=== PATIENT | male | born 1975 | race Caucasian/White ===

== ENCOUNTER 2016-05-14 16:02 | Emergency (ER) | payer BC ==
[~2016-05-14] VITALS: Ht 167.6 cm; Wt 110.0 kg
[~2016-05-14 16:02] MED LIST: CARB400T PO; DOXY-153 PO; MONT10TA21 PO; NO NEW MEDS; PSEU-137 PO; SMV40T PO; SULF1TAB7 PO; VENL150C PO
[2016-05-14 16:06] VITALS: Ht 167.6 cm; Wt 110.0 kg
[2016-05-14] MEDS ORDERED: ONDANSETRON 4 MG INJ IV STA (16:25)
[2016-05-14] MEDS ORDERED: SOD CHLORIDE 0.9% 1,000 ML IV STA (16:25)
[2016-05-14] MEDS ORDERED: DICLOFENAC SODIUM 37.5 MG/ML VIAL IV STA (16:25)
[2016-05-14 16:59] LABS: BASOPHILS % 0.1 % (0.0-2.0); HEMATOCRIT 44.3 % (42.0-52.0); HEMOGLOBIN 15.1 g/dl (14.0-18.0); LYMPHOCYTES # 0.5 10^3/ul (0.8-2.9); LYMPHOCYTES % 6.1 % (15.0-51.0); MEAN CORPUSCULAR HEMOGLOBIN 30.4 pg (29.0-33.0); MEAN CORPUSCULAR HGB CONC 34.2 g/dl (32.0-37.0); MEAN CORPUSCULAR VOLUME 88.8 fl (82.0-101.0); MEAN PLATELET VOLUME 7.4 fl (7.4-10.4); MONOCYTE # 0.7 10^3/ul (0.3-0.9); MONOCYTES % 8.5 % (0.0-11.0); NEUTROPHIL # 7.1 10^3/ul (1.6-7.5); NEUTROPHILS % 85.3 % (39.0-77.0); PLATELET COUNT 197 10^3/UL (140-440); RED BLOOD COUNT 4.99 10^6/ul (4.70-6.10); RED CELL DISTRIBUTION WIDTH 12.6 % (11.5-14.5); UNCORRECTED WBC 8.3 10^3/ul (4.8-10.8); WHITE BLOOD COUNT 8.3 10^3/ul (4.8-10.8)
[2016-05-14 17:03] LABS: CONDITION 1
[2016-05-14 17:57] LABS: ALBUMIN 4.5 g/dl (3.3-4.9)
[2016-05-14 17:58] LABS: POTASSIUM 4.2 mmol/L (3.5-5.1)
[2016-05-14 18:00] LABS: ALBUMIN/GLOBULIN RATIO 1.55; BILIRUBIN,INDIRECT 0.4 mg/dl (0-1.1); BILIRUBIN,TOTAL 0.4 mg/dl (0.2-1.3); CREATININE 0.84 mg/dl (0.61-1.24); TOTAL PROTEIN 7.4 g/dl (6.1-8.1)
[2016-05-14 18:01] LABS: CALCIUM 9.1 mg/dl (8.4-10.2)
[2016-05-14 18:02] LABS: ADD UMIC YES; URINE BILIRUBIN (Dip) NEGATIVE (NEGATIVE); URINE BLOOD (Dip) NEGATIVE (NEGATIVE); URINE COLOR YELLOW (YELLOW); URINE GLUCOSE (Dip) NEGATIVE (NEGATIVE); URINE KETONES (Dip) NEGATIVE (NEGATIVE); URINE LEUKOCYTE ESTERASE (Dip) NEGATIVE (NEGATIVE); URINE NITRITE (Dip) NEGATIVE (NEGATIVE); URINE TOTAL PROTEIN (Dip) TRACE (NEGATIVE); URINE UROBILINOGEN (Dip) 1.0 E.U./dL (0.1-1.0)
[2016-05-14] MEDS ORDERED: ONDA4TAB14 PO (18:14)
[2016-05-14 18:16] LABS: URINE RBCS 0-2 /HPF (0)
--- NOTE | 2016-05-14 18:22 | ERD ---
ER Documentation Chief Complaint Date/Time DATE: 05/14/16 TIME: 18:20 Chief Complaint pt bib family with c/o vomiting /diarrhea and ap for a few days, "food pois HPI Patient is a 40-year-old male who states he got sick after eating [employer]antes last night. He admits to abdominal pain and nausea and vomiting. Denies fever. Denies dysuria hematuria or urinary frequency. Has not taken any medication for pain. Patient states he feels weak. ROS All systems reviewed and are negative except as per history of present illness. Medications Home Meds Active Scripts Ondansetron (Ondansetron Odt) 4 Mg Tab.rapdis, 4 MG PO Q6H Y for NAUSEA AND/OR VOMITING, #15 TAB Prov:DEEPA PEREZ PA-C 05/14/16 Reported Medications [No New Meds] No Conflict Check 08/05/11 Montelukast Sodium* (Singulair*) 10 Mg Tablet, 10 MG PO QHS 07/11/11 Simvastatin (Simvastatin) 40 Mg Tablet, 40 MG PO 07/11/11 Doxycycline Hyclate (Doxycycline Hyclate) 100 Mg Capsule, 100 MG PO BID 07/11/11 Sulfamethoxazole-Trimethoprim* (Bactrim* DS) 1 Tab Tab, 1 TAB PO BID 07/11/11 Pseudoephedrine Hcl (Sudogest) 30 Mg Tablet, 30 MG PO BID 07/11/11 Carbamazepine* (Tegretol Xr*) 400 Mg Tab.sr.12h, 400 MG PO BID 07/11/11 Venlafaxine Hcl* (Effexor XR*) 150 Mg Cap.sr.24h, 150 MG PO DAILY 07/11/11 Allergies Allergies: Coded Allergies: No Known Allergy (Unverified , 08/05/11) PMhx/Soc History of Surgery: No Anesthesia Reaction: No Hx Neurological Disorder: No Hx Respiratory Disorders: Yes (asthma) Hx Cardiac Disorders: No Hx Psychiatric Problems: No Hx Miscellaneous Medical Probl: No Hx Alcohol Use: No Hx Substance Use: No Hx Tobacco Use: No FmHx Family History: No diabetes Physical Exam Vitals Vital Signs Date Time Temp Pulse Resp B/P Pulse Ox O2 Delivery O2 Flow Rate FiO2 05/14/16 16:06 98.3 74 16 128/81 98 Physical Exam General: well developed, well nourished, alert, nontoxic, no distress Head: normocephalic, atraumatic Neck: Supple, nontender, no lymphadenopathy, no midline tenderness Respiratory: Clear to auscaultation bilaterally, speaks in full sentences, no use of accesory muscles or labored breathing, no rales, ronchi, or wheezing Cardiovascular: RRR, No murmurs GI: soft, non tender, non distended, negative murphys sign, negative mcburneys point tenderness, no cva tenderness bilaterally, no rebound or guarding Result Diagram: 05/14/16 1640 05/14/16 1640 Results 24 hrs Laboratory Tests Test 05/14/16 16:40 05/14/16 17:45 Alanine Aminotransferase (ALT/SGPT) 62IU/L Albumin 4.5g/dl Albumin/Globulin Ratio 1.55 Alkaline Phosphatase 84IU/L Anion Gap 19 Aspartate Amino Transf (AST/SGOT) 42IU/L Basophils # 0.010^3/ul Basophils % 0.1% Blood Urea Nitrogen 18mg/dl Calcium Level 9.1mg/dl Carbon Dioxide Level 26mmol/L Chloride Level 99mmol/L Creatinine 0.84mg/dl Direct Bilirubin 0.00mg/dl Eosinophils # 0.010^3/ul Eosinophils % 0.0% Globulin 2.90g/dl Glucose Level 100mg/dl Hematocrit 44.3% Hemoglobin 15.1g/dl Indirect Bilirubin 0.4mg/dl Lipase 61U/L Lymphocytes # 0.510^3/ul Lymphocytes % 6.1% Mean Corpuscular Hemoglobin 30.4pg Mean Corpuscular Hemoglobin Concent 34.2g/dl Mean Corpuscular Volume 88.8fl Mean Platelet Volume 7.4fl Monocytes # 0.710^3/ul Monocytes % 8.5% Neutrophils # 7.110^3/ul Neutrophils % 85.3% Nucleated Red Blood Cells # 0.010^3/ul Nucleated Red Blood Cells % 0.0/100WBC Platelet Count 85261^3/UL Potassium Level 4.2mmol/L Red Blood Count 4.9910^6/ul Red Cell Distribution Width 12.6% Sodium Level 140mmol/L Total Bilirubin 0.4mg/dl Total Protein 7.4g/dl White Blood Count 8.310^3/ul Urine Bilirubin NEGATIVE Urine Clarity CLEAR Urine Color YELLOW Urine Glucose NEGATIVE% Urine Hemoglobin NEGATIVE Urine Ketones NEGATIVE Urine Leukocyte Esterase NEGATIVE Urine Microscopic RBC 0-2/HPF Urine Microscopic WBC 0-2/HPF Urine Nitrite NEGATIVE Urine Specific [place] 1.020 Urine Total Protein TRACE Urine Urobilinogen 1.0 E.U./dL Urine pH 6.0 Current Medications Medications (Trade) Dose Ordered Sig/Christoph Route PRN Reason Start Time Stop Time Status Last Admin Dose Admin Sodium Chloride (NS) 1,000 ml @ 1,000 mls/hr Q1H STAT IV 05/14/16 16:25 05/14/16 17:24 DC 05/14/16 16:46 Ondansetron HCl (Zofran Inj) 4 mg ONCE STAT IV 05/14/16 16:25 05/14/16 16:27 DC 05/14/16 16:46 Diclofenac Sodium (Dyloject) 37.5 mg ONCE STAT IV 05/14/16 16:25 05/14/16 16:27 DC 05/14/16 16:46 Procedures/MDM 40-year-old male has abdominal pain that he believes is secondary to eating [employer] last night. His vital signs are all normal and he was given IV fluids and pain medication and Zofran and had good relief of his symptoms and all of his labs are normal. Patient is discharged with Zofran. Recommended this patient follow up with her primary care doctor within 48 hours or return to the emergency room for any worsening of symptoms. However this time I do believe there is suitable for outpatient management. I answered all their questions and they agreed with the plan and were discharged home. Departure Diagnosis: Primary Impression: Abdominal pain Condition: Stable Patient Instructions: Abdominal Pain Additional Instructions: Call your primary care doctor TOMORROW for an appointment during the next 1-2 days.See the doctor sooner or return here if your condition worsens before your appointment time. DEEPA PEREZ PA-C May 14, 2016 18:21
[2016-05-14 18:33] VITALS: BP 125/79; PULSE 68; RESP 18; TEMP 97.8
== END 2016-05-14 18:33 | disposition home or self-care (01) ==
LOC: FTE 16:02
DX: R10.9 Unspecified abdominal pain (principal); J45.909 Unspecified asthma, uncomplicated
CPT/HCPCS: 36415; 80053; 81001; 83690; 85025; 96374; 96375; 99284; J2405; J7030; 81003

== ENCOUNTER 2016-09-10 15:31 | Emergency (ER) | payer MEDICARE, BC ==
[~2016-09-10] VITALS: Ht 167.6 cm; Wt 105.5 kg
[~2016-09-10 15:31] MED LIST changes: +ONDA4TAB14 PO
[2016-09-10 15:46] VITALS: Ht 167.6 cm; Wt 105.5 kg
[2016-09-10] MEDS ORDERED: KETOROLAC 30 MG INJ IM STA (16:46)
--- NOTE | 2016-09-10 16:58 | ERD ---
ER Documentation Chief Complaint Date/Time DATE: 09/10/16 TIME: 16:54 Chief Complaint BACK PAIN X 2 DAYS DENIES ANY TRAUMA HPI This a 40-year-old male who presents to the emergency department today complaining of low back pain for the past 2 days. Patient denies any trauma however he states that he was lying in bed for a period of time because he had been sick. Denies any fevers or chills, hematuria, dysuria, loss of bowel or bladder control. States he also has a cough and would like cough medicine. States he has taken DayQuil and NyQuil. ROS All systems reviewed and are negative except as per history of present illness. Medications Home Meds Active Scripts Cyclobenzaprine Hcl* (Cyclobenzaprine Hcl*) 10 Mg Tablet, 10 MG PO QHS, #7 TAB Prov:MICHELLE FLOR PA-C 09/10/16 Naproxen* (Naprosyn*) 500 Mg Tablet, 500 MG PO BID Y for PAIN AND/OR INFLAMMATION, #30 TAB Prov:MICHELLE FLOR PA-C 09/10/16 Tramadol HCl (Tramadol HCl) 50 Mg Tablet, 50 MG PO Q4 Y for PAIN, #20 TAB Prov:MICHELLE FLOR PA-C 09/10/16 Guaifenesin-Dextromethorphan* (Robitussin* DM) 100MG/10MG/5ML Syrup, 10 ML PO Q4H Y for COUGH for 5 Days, ML Prov:MICHELLE FLOR PA-C 09/10/16 Ondansetron (Ondansetron Odt) 4 Mg Tab.rapdis, 4 MG PO Q6H Y for NAUSEA AND/OR VOMITING, #15 TAB Prov:DEEPA PEREZ PA-C 05/14/16 Reported Medications [No New Meds] No Conflict Check 08/05/11 Montelukast Sodium* (Singulair*) 10 Mg Tablet, 10 MG PO QHS 07/11/11 Simvastatin (Simvastatin) 40 Mg Tablet, 40 MG PO 07/11/11 Doxycycline Hyclate (Doxycycline Hyclate) 100 Mg Capsule, 100 MG PO BID 07/11/11 Sulfamethoxazole-Trimethoprim* (Bactrim* DS) 1 Tab Tab, 1 TAB PO BID 07/11/11 Pseudoephedrine Hcl (Sudogest) 30 Mg Tablet, 30 MG PO BID 07/11/11 Carbamazepine* (Tegretol Xr*) 400 Mg Tab.sr.12h, 400 MG PO BID 07/11/11 Venlafaxine Hcl* (Effexor XR*) 150 Mg Cap.sr.24h, 150 MG PO DAILY 07/11/11 Allergies Allergies: Coded Allergies: No Known Allergy (Unverified , 09/10/16) PMhx/Soc Medical and Surgical Hx: pt denies Surgical Hx History of Surgery: No Anesthesia Reaction: No Hx Neurological Disorder: No Hx Respiratory Disorders: Yes (asthma) Hx Cardiac Disorders: No Hx Psychiatric Problems: No Hx Miscellaneous Medical Probl: No Hx Alcohol Use: No Hx Substance Use: No Hx Tobacco Use: No Smoking Status: Never smoker Physical Exam Vitals Vital Signs Date Time Temp Pulse Resp B/P Pulse Ox O2 Delivery O2 Flow Rate FiO2 09/10/16 15:46 97.2 86 18 157/85 100 Physical Exam Const: Obese, no acute distress Head: Atraumatic Eyes: Normal Conjunctiva ENT: Normal External Ears, Nose and Mouth. Neck: Full range of motion..~ No meningismus. Resp: Clear to auscultation bilaterally Cardio: Regular rate and rhythm, no murmurs Skin: No petechiae or rashes Back: No midline tenderness. Left sided paraspinal tenderness. Pain with forward flexion. Negative straight leg raise. Pulses 2+. Distal neurovascularly intact. Ext: No cyanosis, or edema Neur: Awake and alert Psych: Normal Mood and Affect Results 24 hrs Current Medications Medications (Trade) Dose Ordered Sig/Christoph Route PRN Reason Start Time Stop Time Status Last Admin Dose Admin Ketorolac Tromethamine (Toradol) 30 mg ONCE STAT IM 09/10/16 16:46 09/10/16 16:47 DC Procedures/MDM This a 40-year-old male who presents to the emergency department today complaining of left-sided back pain for the past 2 days. Patient has no midline tenderness he has had no trauma and I do not feel the patient requires imaging at this time. Patient's back pain peer to be exacerbated by laying in bed for several days and his symptoms of this time is consistent with sprain versus strain especially given that the pain is increased when he bends forward. Patient is afebrile and otherwise well-appearing. Low suspicion for acute fracture, dislocation. Low suspicion for abscess or cauda equina. Patient states he has not taken any medication at home because "Tylenol, Aleve, Tylenol with codeine, Vicodin, none of that stuff works". Patient was given a Toradol injection here in the emergency department. I have given a prescription for a short course of tramadol for home as well as Naprosyn and Flexeril. Patient was instructed to apply ice and heat intermittently. He was also instructed to refrain from sitting or laying down for long periods of time. Patient understood. Patient was also requesting cough medicine as he had recently been sick and he still has a cough and he has tried DayQuil and NyQuil. Patient's oxygen saturation 100%. He is not tachycardic. Of low suspicion for pneumonia, PE, abscess, pleural effusion,, pneumothorax. Patient was given a prescription for Robitussin. At this time the patient is stable for discharge and outpatient management. Patient should follow up with their PCP in the next 1-2 days. They may return to the emergency department sooner for any persistent or worsening of symptoms. Patient understood and agreed with the plan. Departure Diagnosis: Primary Impression: Back pain Back pain location: low back pain Chronicity: acute Back pain laterality: left Sciatica presence: without sciatica Qualified Code: M54.5 - Acute left- sided low back pain without sciatica Additional Impression: Cough Condition: Fair MICHELLE FLOR PA-C Sep 10, 2016 16:58
[2016-09-10] MEDS ORDERED: UDROBDM PO (16:59)
[2016-09-10] MEDS ORDERED: TRAM50TA2 PO (16:59)
[2016-09-10] MEDS ORDERED: CYCL-319 PO (17:00)
[2016-09-10] MEDS ORDERED: NAPR-260 PO (17:00)
== END 2016-09-10 17:17 | disposition home or self-care (01) ==
LOC: FTE 15:31
DX: M54.5 Low back pain (principal); R05 Cough; J45.909 Unspecified asthma, uncomplicated
CPT/HCPCS: 96372; 99284; J1885

== ENCOUNTER 2017-10-25 05:56 | Day surgery (SDC) | END 2017-10-25 13:32 | disposition home or self-care (01) ==

== ENCOUNTER 2018-06-27 05:42 | Day surgery (SDC) | payer MEDICARE, BC ==
--- NOTE | 2018-06-26 17:11 | PREOPHP ---
DATE OF ADMISSION: 06/27/2018 HISTORY OF PRESENT ILLNESS: A 42-year-old patient is going to be admitted for right carpal tunnel re lease with external neurolysis and application of volar splint. This gentleman has been experiencing right carpal tunnel syndrome for quite a while. Conservative tr eatment resulted limited benefit to the patient. The patient has requested surgical intervention. PAST MEDICAL HISTORY: Negative. SOCIAL HISTORY: Nonsmoker, nondrinker. FAMILY HISTORY: Negative. PAST SURGICAL HISTORY: Shoulder surgery. MEDICATIONS: 1. ____. 2. Flexeril. 3. Claritin. 4. Montelukast. 5. Baclofen. 6. Folic acid D3. 7. B6. 8. B12. 9. Postop, Bactrim-DS is given. PHYSICAL EXAMINATION: VITAL SIGNS: Height of 5 feet, 6 inches, weighing 236 pounds. SKIN: Within normal limits. Well healed from previous surgery on his shoulder. ENT: PERRLA. HEAD AND NECK: Normocephalic. Trachea is midline. Bilateral symmetrical carotid pulses. No mass, no bruit, no lymphadenopathy. CARDIOVASCULAR: Normal sinus rhythm. S1, S2 normal. No murmur, no JVD, no peripheral edema. LUNGS: Clear. ABDOMEN: Protuberant. No organomegaly. No mass. Bowel sounds are present. GENITOURINARY AND RECTAL: Not done, not pertinent to this admission. MUSCULOSKELETAL: Head and neck are unremarkable. Upper extremities are normal with normal vascular examination except for the right hand. Right hand shows positive Tinel in carpal tunnel space. Incr eased pinprick sensation ____ fingers with positive nerve conduction study. Spine and both lower ext remities are symmetrical and normal. DIAGNOSES: Right carpal tunnel syndrome. The patient understands possible complications such as infection, bleeding, nerve damage, vascular da mage, possibility of deep venous thrombosis, pulmonary embolism, hypersensitivity from medication and even . [place] result may not be obtained depending on actual finding on known or unknown factor or factors. Formal H and P is supposed to be done by PCP. No guarantee is going to be made. Dictated By: OPAL LEDEZMA/AMY Conf#: [id number] [facility]#: [id number]
[2018-06-27] VITALS (30 sets, daily range): BP systolic 63–144; BP diastolic 45–85; PULSE 88–106; RESP 14–27; Ht 167.6 cm; Wt 111.4 kg
[~2018-06-27] VITALS: Ht 167.6 cm; Wt 111.4 kg
[~2018-06-27 05:42] MED LIST changes: +CYCL10TA7 PO; +GUAI5SYR2 PO; +NAPR-985 PO; +SIMV40TA3 PO; -SMV40T PO; +TRAM50TA2 PO
--- NOTE | 2018-06-27 07:04 | PREAC ---
Date/Time of Note Date/Time of Note DATE: 06/27/18 TIME: 07:04 Anesthesia Eval and Record Evaluation Time Pre-Procedure Interview DATE: 06/27/18 TIME: 07:04 Age 42 Sex male NPO: 8 hrs Preoperative diagnosis Right carpal tunnel syndrome Planned procedure Carpal tunnel release, external neurolysis Past Medical History Past Medical History: Includes Cardio: Dyslipidemia Pulm: Asthma Neuro: Seizure disorder GI: Morbid obesity Surgery & Anesthesia Issues No known issue Meds Anticoagulation: No Beta Waldo within 24 hr: No Reason Beta Waldo not given: Pt. not on B-Waldo Active Scripts Cyclobenzaprine Hcl* (Cyclobenzaprine Hcl*) 10 Mg Tablet, 10 MG PO QHS, #7 TAB Prov:MICHELLE FLOR PA-C 09/10/16 Naproxen* (Naprosyn*) 500 Mg Tablet, 500 MG PO BID PRN for PAIN AND/OR INFLAMMATION, #30 TAB Prov:MICHELLE FLOR PA-C 09/10/16 Tramadol HCl (Tramadol HCl) 50 Mg Tablet, 50 MG PO Q4 PRN for PAIN, #20 TAB Prov:MICHELLE FLOR PA-C 09/10/16 Guaifenesin-Dextromethorphan* (Robitussin* DM) 100MG/10MG/5ML Syrup, 10 ML PO Q4H PRN for COUGH for 5 Days, ML Prov:MICHELLE FLOR PA-C 09/10/16 Ondansetron (Ondansetron Odt) 4 Mg Tab.rapdis, 4 MG PO Q6H PRN for NAUSEA AND/OR VOMITING, #15 TAB Prov:DEEPA PEREZ PA-C 05/14/16 Reported Medications [No New Meds] No Conflict Check 08/05/11 Montelukast Sodium* (Singulair*) 10 Mg Tablet, 10 MG PO QHS 07/11/11 Simvastatin (Simvastatin) 40 Mg Tablet, 40 MG PO 07/11/11 Doxycycline Hyclate (Doxycycline Hyclate) 100 Mg Capsule, 100 MG PO BID 07/11/11 Sulfamethoxazole-Trimethoprim* (Bactrim* DS) 1 Tab Tab, 1 TAB PO BID 07/11/11 Pseudoephedrine Hcl (Sudogest) 30 Mg Tablet, 30 MG PO BID 07/11/11 Carbamazepine* (Tegretol Xr*) 400 Mg Tab.sr.12h, 400 MG PO BID 07/11/11 Venlafaxine Hcl* (Effexor XR*) 150 Mg Cap.sr.24h, 150 MG PO DAILY 07/11/11 Meds reviewed: Yes Allergies Coded Allergies: No Known Allergy (Unverified , 09/10/16) Allergies Reviewed: Yes Labs/Studies Labs Reviewed: Reviewed by anesthesiologist test: N/A Pre-procedure Exam Last vitals Vital Signs Date Temp Pulse Resp B/P (MAP) Pulse Ox O2 O2 Flow FiO2 Time Delivery Rate 06/27/18 98.9 88 18 144/83 96 Room Air 06:51 (103) Airway: Adequate mouth opening Mallampati: Mallampati II Teeth: Normal Lung: Normal Heart: Normal ASA Physical Status ASA physical status: 3 Emergency: None Planned Anesthetic General/MAC: LMA Planned Pain Management Parenteral pain med Pre-operative Attestations Prior to commencing anesthesia and surgery, the patient was re-evaluated, there was verification of: *The patient's identity *The results of appropriate recent lab work and preoperative vital signs *The above evaluation not changing prior to induction *Anesthetic plan, risk benefits, alternative and complications discussed with patient/family; questions answered; patient/family understands, accepts and wishes to proceed. JONNY VELAZQUEZ MD Jun 27, 2018 07:04
[2018-06-27] MEDS ORDERED: PROPOFOL 20 ML ONE (07:30)
[2018-06-27] MEDS ORDERED: CEFAZOLIN 1 GM INJ ONE (07:30)
[2018-06-27] MEDS ORDERED: MEPERIDINE 100 MG INJ ONE (07:30)
[2018-06-27] MEDS ORDERED: LIDOCAINE 2% (SDV) 5 ML INJ ONE (07:30)
[2018-06-27] MEDS ORDERED: morphine SULFATE/PF (10 MG/10 ML) INJ ONE (07:57)
[2018-06-27] MEDS ORDERED: POLYMYXIN/BACITRACIN 1L IRRIG IRR ONE ×2 (08:09→08:55)
[2018-06-27] MEDS ORDERED: hydrALAzine 20 MG INJ IV PRN (08:30)
[2018-06-27] MEDS ORDERED: FENTAnyl 50 MCG/ML VIAL IV PRN ×3 (08:30)
[2018-06-27] MEDS ORDERED: OXYCODONE/ACETAMINOPHEN (5/325) TAB PO PRN ×2 (08:30)
[2018-06-27] MEDS ORDERED: EPHEDrine SULFATE 50 MG/5 ML SYG IV PRN (08:30)
[2018-06-27] MEDS ORDERED: ONDANSETRON 4 MG INJ IV PRN (08:30)
[2018-06-27] MEDS ORDERED: MEPERIDINE 25 MG INJ IV PRN (08:30)
[2018-06-27] MEDS ORDERED: LABETALOL HCL 20MG INJ IV PRN (08:30)
[2018-06-27] MEDS ORDERED: METOCLOPRAMIDE 10 MG INJ IV PRN (08:30)
[2018-06-27] MEDS ORDERED: MIDAZOLAM 1 MG/ML 2 ML INJ IV PRN (08:30)
[2018-06-27] MEDS ORDERED: DIPHENHYDRAMINE 50 MG INJ IV PRN (08:30)
[2018-06-27] MEDS ORDERED: HYDROmorphONE 1 MG/5 ML IV SYRINGE IV PRN ×3 (08:30)
--- NOTE | 2018-06-27 08:50 | SIPON ---
Date/Time of Note Date/Time of Note DATE: 06/27/18 TIME: 08:46 Operative Report Preoperative Diagnosis carpal tunnel syndrome right hand Postoperative Diagnosis The same Operation/Procedure Performed Carpal Tunnel release and external neurolysis plus application of volar splint Surgeon Opal Pedroza MD surgery assistant None Anesthesia: general Estimated blood loss: none Transfusion Required none Specimen None Grafts/Implants none Complications none OPAL PEDROZA MD Jun 27, 2018 08:50
[2018-06-27] MEDS ORDERED: POLYMYXIN/BACITRACIN 1L IRRIG ONE (08:55)
--- NOTE | 2018-06-27 09:34 | PAC ---
Date/Time of Note Date/Time of Note DATE: 06/27/18 TIME: 09:34 Post-Anesthesia Notes Post-Anesthesia Note Last documented vital signs Vital Signs Date Temp Pulse Resp B/P (MAP) Pulse Ox O2 O2 Flow FiO2 Time Delivery Rate 06/27/18 94 21 121/65 92 09:26 (83) 06/27/18 Mask 09:01 06/27/18 98.4 08:56 Activity: WNL Respiratory function: WNL Cardiovascular function: WNL Mental status: Baseline Pain reasonably controlled: Yes Hydration appropriate: Yes Nausea/Vomiting absent: Yes Comments BT:98.5 JONNY VELAZQUEZ MD Jun 27, 2018 09:34
--- NOTE | 2018-06-27 09:38 | OPR ---
DATE OF OPERATION: 06/27/2018 PREOPERATIVE DIAGNOSIS: Carpal tunnel syndrome, right hand. POSTOPERATIVE DIAGNOSIS: Carpal tunnel syndrome, right hand. OPERATION PERFORMED: Carpal tunnel release, external neurolysis, application of volar splint. ANESTHESIA: General. ANESTHESIOLOGIST: Dr. Nolan. BLEEDING: None. COMPLICATIONS: None. OPERATIVE PROCEDURE: The patient was transferred to the operating room and placed on the table in bernardo pine position. General anesthesia was induced. 1 gram of Ancef was given IV. Right upper extremity was prepped and draped in the routine fashion. Landmarks were marked. An Esmarch was used and tour niquet was inflated to 250 mmHg. An incision was made from the inferior part of the deep carpal liga ment to an inch proximally lifting the wrist crease on the radial side at 60 degrees. Incision was c arried down from skin and subcutaneous tissue. Superficial carpal ligament was incised then deep tra nsverse carpal ligament was incised longitudinal axis of the ring finger. Hemostasis was obtained wi th the help of needle tip Bovie during the procedure. The median nerve was compressed for about 30%, right at the wrist and left external neurolysis with choral director. Area was irrigated with saline solut ion, and 10 mg of Duramorph was injected into the subcutaneous tissue and skin was closed with 4-0 ny gallo interrupted mattress suture. A sterile dressing was applied consisting of Xeroform, 4 x 4, and W ebril. A 3-inch fiberglass splint was applied. Compression was maintained in the area of incision f or 3 minutes. General anesthesia was stopped. The patient was taken to recovery room in good and stable condition subsequently. Dictated By: OPAL LEDEZMA/AMY Conf#: [id number] [facility]#: [id number] CC: OPAL COLBY MD;*EndCC*
[2018-06-27] MEDS ORDERED: ALBUTEROL 0.083% (NEB) 2.5 MG/3 ML AMP HHN STA (10:19)
== END 2018-06-27 15:25 | disposition home or self-care (01) ==
LOC: SDS 05:42
PROVIDERS: ATTEND Internal Medicine Endocrinology, Diabetes & Metabolism
DX: G56.01 Carpal tunnel syndrome, right upper limb (principal); E78.5 Hyperlipidemia, unspecified; E66.01 Morbid (severe) obesity due to excess calories; J45.998 Other asthma
CPT/HCPCS: 64721; 64727; 94664; J0690; J2175; J2274; J2405

== ENCOUNTER 2018-06-29 10:39 | Inpatient (IN) | payer MEDICARE, BC ==
[~2018-06-29] VITALS: Ht 167.6 cm; Wt 112.2 kg
[2018-06-29] MEDS ORDERED: AZITHROMYCIN 250 MG TAB PO STA (11:07)
[2018-06-29] MEDS ORDERED: CEFTRIAXONE 1 GM/50 ML (PMX) 50 ML IVPB STA (11:07)
[2018-06-29] MEDS ORDERED: SODIUM CHLORIDE 0.9% 1L BAG IV* STA (11:07)
--- NOTE | 2018-06-29 11:19 | ERD ---
ER Documentation Chief Complaint Chief Complaint pt just dc'ed 2 days ago for carpal tunnel surg, feels sob HPI This is a 42-year-old male who was discharged 2 days ago status post right arm carpal tunnel surgery is complaining of 2 days of cough with bloody sputum with a subjective fever onset last night and today. The patient is not short of breath having tachycardia or chest pain. His right arm is feeling well and healing okay states. No abdominal pain no GI symptoms no back pain ROS All systems reviewed and are negative except as per history of present illness. Medications Home Meds Reported Medications Pyridoxine Hcl (Vitamin B6) 50 Mg Tab, 50 MG PO DAILY, TAB 06/29/18 Sulindac* (Clinoril*) 150 Mg Tab, 37.5 MG PO BID, TAB 06/29/18 Cholecalciferol* (Vitamin D3*) 1,000 Unit Tablet, 2000 UNIT PO DAILY, TAB 06/29/18 Folic Acid* (Folic Acid*) 1 Mg Tablet, 1 MG PO DAILY, TAB 06/29/18 Baclofen* (Baclofen*) 10 Mg Tablet, 5 MG PO QHS, TAB 06/29/18 Montelukast Sodium* (Singulair*) 10 Mg Tablet, 10 MG PO QHS 07/11/11 Simvastatin (Simvastatin) 40 Mg Tablet, 40 MG PO 07/11/11 Sulfamethoxazole-Trimethoprim* (Bactrim* DS) 1 Tab Tab, 1 TAB PO BID 07/11/11 Carbamazepine* (Tegretol Xr*) 400 Mg Tab.sr.12h, 400 MG PO BID 07/11/11 Venlafaxine Hcl* (Effexor XR*) 150 Mg Cap.sr.24h, 150 MG PO DAILY 07/11/11 Discontinued Reported Medications [No New Meds] No Conflict Check 08/05/11 Doxycycline Hyclate (Doxycycline Hyclate) 100 Mg Capsule, 100 MG PO BID 07/11/11 Pseudoephedrine Hcl (Sudogest) 30 Mg Tablet, 30 MG PO BID 07/11/11 Discontinued Scripts Cyclobenzaprine Hcl* (Cyclobenzaprine Hcl*) 10 Mg Tablet, 10 MG PO QHS, #7 TAB Prov:MICHELLE FLOR PA-C 09/10/16 Naproxen* (Naprosyn*) 500 Mg Tablet, 500 MG PO BID PRN for PAIN AND/OR INFLAMMATION, #30 TAB Prov:MICHELLE FOLR PA-C 09/10/16 Tramadol HCl (Tramadol HCl) 50 Mg Tablet, 50 MG PO Q4 PRN for PAIN, #20 TAB Prov:MICHELLE FLOR PA-C 09/10/16 Guaifenesin-Dextromethorphan* (Robitussin* DM) 100MG/10MG/5ML Syrup, 10 ML PO Q4H PRN for COUGH for 5 Days, ML Prov:MICHELLE FLOR PA-C 09/10/16 Ondansetron (Ondansetron Odt) 4 Mg Tab.rapdis, 4 MG PO Q6H PRN for NAUSEA AND/OR VOMITING, #15 TAB Prov:DEEPA PEREZ PA-C 05/14/16 Allergies Allergies: Coded Allergies: No Known Allergy (Unverified , 06/29/18) PMhx/Soc History of Surgery: Yes (joya) Anesthesia Reaction: No Hx Neurological Disorder: Yes (seizures) Hx Respiratory Disorders: Yes Hx Cardiac Disorders: No Hx Psychiatric Problems: No Hx Miscellaneous Medical Probl: No Hx Alcohol Use: No Hx Substance Use: No Hx Tobacco Use: No FmHx Family History: No coronary disease Physical Exam Vitals Vital Signs Date Temp Pulse Resp B/P (MAP) Pulse Ox O2 O2 Flow FiO2 Time Delivery Rate 06/29/18 99.3 108 24 144/82 95 Room Air 13:10 (102) 06/29/18 Nasal 2 11:17 Cannula 06/29/18 99.0 106 24 152/78 93 10:44 (102) Physical Exam Const: Well-developed, well-nourished Head: Atraumatic, normocephalic Eyes: Normal Conjunctiva, PERRLA, EOMI, normal sclera, no nystagmus ENT: Normal External Ears, Nose and Mouth, moist mucus membranes. Neck: Full range of motion. No meningismus, no lymphadenopathy. Resp: Right upper lobe rhonchi, no increased work of breathing Cardio: Regular rate and rhythm, no murmurs, S1 S2 present Abd: Soft, non tender x 4, non distended. Normal bowel sounds, no guarding or rebound, no pulsitile abdominal masses or bruits Skin: No petechiae or rashes, no ecchymosis , no maculopapular rash Back: No midline or flank tenderness Ext: No cyanosis, or edema, FROM x 4, normal inspection, neurovascularly intact x 4 Neur: Awake and alert, STR 5/5 x 4, sensation intact x 4, no focal findings, cerebellum intact Psych: Normal Mood and Affect Result Diagram: 06/29/18 1056 06/29/18 1056 Results 24 hrs Laboratory Tests Test 06/29/18 10:56 White Blood Count 11.6 10^3/ul Red Blood Count 4.49 10^6/ul Hemoglobin 13.5 g/dl Hematocrit 39.8 % Mean Corpuscular Volume 88.6 fl Mean Corpuscular Hemoglobin 30.1 pg Mean Corpuscular Hemoglobin Concent 33.9 g/dl Red Cell Distribution Width 12.1 % Platelet Count 188 10^3/UL Mean Platelet Volume 9.4 fl Immature Granulocytes % 0.400 % Neutrophils % 71.9 % Lymphocytes % 13.5 % Monocytes % 13.8 % Eosinophils % 0.1 % Basophils % 0.3 % Nucleated Red Blood Cells % 0.0 /100WBC Immature Granulocytes # 0.050 10^3/ul Neutrophils # 8.3 10^3/ul Lymphocytes # 1.6 10^3/ul Monocytes # 1.6 10^3/ul Eosinophils # 0.0 10^3/ul Basophils # 0.0 10^3/ul Nucleated Red Blood Cells # 0.0 10^3/ul Prothrombin Time 13.3 Sec Prothrombin Time Ratio 1.0 INR International Normalized Ratio 1.00 Activated Partial Thromboplast Time 31.5 Sec Sodium Level 140 mmol/L Potassium Level 4.1 mmol/L Chloride Level 99 mmol/L Carbon Dioxide Level 29 mmol/L Anion Gap 12 Blood Urea Nitrogen 13 mg/dl Creatinine 0.99 mg/dl Est Glomerular Filtrat Rate mL/min > 60 mL/min Glucose Level 104 mg/dl Lactic Acid Level 2.0 mmol/L Calcium Level 9.5 mg/dl Total Bilirubin 0.7 mg/dl Direct Bilirubin 0.00 mg/dl Indirect Bilirubin 0.7 mg/dl Aspartate Amino Transf (AST/SGOT) 32 IU/L Alanine Aminotransferase (ALT/SGPT) 27 IU/L Alkaline Phosphatase 73 IU/L Troponin I 0.014 ng/ml B-Type Natriuretic Peptide 437 PG/ML Total Protein 7.8 g/dl Albumin 4.6 g/dl Globulin 3.20 g/dl Albumin/Globulin Ratio 1.43 Current Medications Medications Dose Sig/Christoph Start Time Status Last (Trade) Ordered Route PRN Stop Time Admin Dose Reason Admin Sodium 3,300 ml BOLUS OVER 2 06/29/18 DC 06/29/18 Chloride HOURS STAT 11:07 11:29 (NS) IV* 06/29/18 11:11 500 mg ONCE STAT 06/29/18 DC Azithromycin PO 11:07 (Zithromax) 06/29/18 11:27 Ceftriaxone 50 ml @ ONCE STAT 06/29/18 DC 06/29/18 Sodium 100 mls/hr IVPB 11:07 11:29 06/29/18 11:36 Vancomycin 250 ml @ ONCE ONCE 06/29/18 06/29/18 HCl 125 mls/hr IVPB 11:30 11:58 06/29/18 13:29 Procedures/MDM XR Chest. CLINICAL INDICATION: chest pain TECHNIQUE: Single frontal view of the chest was obtained COMPARISON: None FINDINGS: The heart and mediastinum are within normal limits. There is an extensive right upper lobe infiltrate. There is no pleural effusion or pneumothorax. RPTAT: AA IMPRESSION: Extensive right upper lobe infiltrate. .Nura Yarbrough MD, MD Date Time Electronically viewed and signed by .Nura Yarbrough MD, MD on 06/29/2018 11:12 .S/ CC: DIANA CAMACHO DO [id number] Patient has right upper lobe pneumonia with hypoxia. Lactic acid is 2.0. We will admit for antibiotic therapy and pulmonary therapy. Departure Diagnosis: Primary Impression: Right upper lobe pneumonia Pneumonia type: due to unspecified organism Qualified Codes: J18.1 - Lobar pneumonia, unspecified organism Condition: Stable DIANA CAMACHO DO Jun 29, 2018 11:19
[2018-06-29] MEDS ORDERED: VANCOMYCIN 1 GM (PMX) 250 ML IVPB ONE (11:30)
[2018-06-29] MEDS ORDERED: PYRI50TA15 PO (12:00)
[2018-06-29] MEDS ORDERED: CHOL100062 PO (12:00)
[2018-06-29] MEDS ORDERED: BACL10TA PO (12:00)
[2018-06-29] MEDS ORDERED: FOLI-49 PO (12:00)
[2018-06-29] MEDS ORDERED: [UNRECOGNIZED DRUG - CODE] PO (12:00)
[2018-06-29] MEDS ORDERED: SOD CHLORIDE 0.9% 1,000 ML IV SCH (13:27)
[2018-06-29] MEDS ORDERED: ONDANSETRON 4 MG INJ IV PRN ×2 (13:30→15:00)
[2018-06-29] MEDS ORDERED: ACETAMINOPHEN 325 MG TAB PO PRN ×2 (13:30→15:00)
[2018-06-29] MEDS ORDERED: SOD CHLORIDE 0.9% 100 ML ONE (13:32)
[2018-06-29] MEDS ORDERED: IOHEXOL 100 ML ONE (13:32)
[2018-06-29] MEDS ORDERED: LEVALBUTEROL (NEB) 0.63 MG/3 ML AMP HHN PRN (15:00)
[2018-06-29] MEDS ORDERED: GUAIFENESIN/DM 5ML CUP PO PRN (15:00)
[2018-06-29] MEDS ORDERED: GUAIFENESIN/CODEINE 5ML CUP PO PRN (15:00)
[2018-06-29] MEDS ORDERED: NACL 0.9% 3 ML SYG IV SCH (15:00)
[2018-06-29] MEDS ORDERED: MAGNESIUM HYDROXIDE 30ML CUP PO PRN (15:00)
[2018-06-29] MEDS ORDERED: DOCUSATE SODIUM 100 MG CAP PO PRN (15:00)
[2018-06-29] MEDS: AZITHROMYCIN 500MG/NS (PMX) 250 ML IV SCH (16:20)
--- NOTE | 2018-06-29 16:21 | HP ---
Date/Time of Note Date/Time of Note DATE: 06/29/18 TIME: 16:14 Assessment/Plan VTE Prophylaxis SCD applied (from Nsg): Yes Pharmacological prophylaxis: NA/contraindicated Pharm contraindication: bleeding Lines/Catheters IV Catheter Type (from Nrsg): Saline Lock Assessment/Plan Assessment/Plan 1. Bilateral pneumonia, severe in RUL - Will start on IV antibiotics and neb treatments - Sputum culture ordered - pt noted igor blood in sputum and will monitor. Doubt TB or other pathologic etiology given he recently was intubated for surgical procedure on 06/27 and possible aspiration or trauma during intubation. will monitor for further episodes - Supportive treatment 2. Asthma - continue on singular and nebs 3. Mood disorder - continue home medications 4. Recent carpal tunnel surgery - patient aware of post operative instructions - pain control 5. GERD - PPI 6. DVT ppx - SCD 7. Disposition - Admit to telemetry for treatment of extensive pneumonia. Will continue IV antibiotics for another 24-48 hours and monitor for further blood in sputum. If improving, will transition to PO antibiotics and d/c home Result Diagram: 06/29/18 1056 06/29/18 1056 Results 24hrs Laboratory Tests Test 06/29/18 10:56 White Blood Count 11.6 #H Red Blood Count 4.49 L Hemoglobin 13.5 L Hematocrit 39.8 L Mean Corpuscular Volume 88.6 Mean Corpuscular Hemoglobin 30.1 Mean Corpuscular Hemoglobin Concent 33.9 Red Cell Distribution Width 12.1 Platelet Count 188 Mean Platelet Volume 9.4 # Immature Granulocytes % 0.400 Neutrophils % 71.9 Lymphocytes % 13.5 L Monocytes % 13.8 H Eosinophils % 0.1 Basophils % 0.3 Nucleated Red Blood Cells % 0.0 Immature Granulocytes # 0.050 H Neutrophils # 8.3 H Lymphocytes # 1.6 Monocytes # 1.6 H Eosinophils # 0.0 Basophils # 0.0 Nucleated Red Blood Cells # 0.0 Prothrombin Time 13.3 Prothrombin Time Ratio 1.0 INR International Normalized Ratio 1.00 Activated Partial Thromboplast Time 31.5 Sodium Level 140 Potassium Level 4.1 Chloride Level 99 Carbon Dioxide Level 29 Anion Gap 12 Blood Urea Nitrogen 13 Creatinine 0.99 Est Glomerular Filtrat Rate mL/min > 60 Glucose Level 104 Lactic Acid Level 2.0 Calcium Level 9.5 Total Bilirubin 0.7 Direct Bilirubin 0.00 Indirect Bilirubin 0.7 Aspartate Amino Transf (AST/SGOT) 32 Alanine Aminotransferase (ALT/SGPT) 27 Alkaline Phosphatase 73 Troponin I 0.014 B-Type Natriuretic Peptide 437 H Total Protein 7.8 Albumin 4.6 Globulin 3.20 Albumin/Globulin Ratio 1.43 HPI/ROS Admit Date/Time Admit Date/Time 06/29/18 1400 Hx of Present Illness 42 yo M with PMH asthma, carpal tunnel syndrome and mood disorder presented to ED with worsening shortness of breath with cough and productive bloody sputum. States believes he's coughed up about 2-3 small teaspoons worth of blood. Patient states he was recently admitted for carpal tunnel surgery requiring intubation and was having issues with O2 saturations prior to discharge home. Since discharge on 06/27/18, he states he has not been feeling well. He admits to poor appetite, difficulty sleeping and respiratory distress. Patient admits to low grade temperature today. Also complaining of chest discomfort especially on right side when he coughs. Admits to headache but denies any dizziness, nausea, or vomiting. Denies any abdominal issues, constipation or diarrhea. No urinary issues. ROS All 12 systems reviewed and pertinent positives as per HPI. All others negative. Constitutional: No fatigue, No nausea Eyes: No discharge ENT: No congestion Respiratory: pain, cough, sputum; No shortness of breath, No wheezing Cardiovascular: chest pain, palpitations; No edema, No lightheadedness Gastrointestinal: no complaints; No constipation, No diarrhea, No nausea, No vomiting Genitourinary: no complaints Musculoskeletal: no complaints Skin: No laceration, No rash Neurologic: No confusion, No focal-weakness, No syncope Endocrine: no complaints Lymphatic: no complaints Psychological: nl mood/affect Immunologic: no complaints PMH/Family/Social Past Medical History Medical History: other (asthma, mood disorder) Medications Current Medications Sodium Chloride 1,000 ml @ 80 mls/hr [id number] IV ; Start 06/29/18 at 13:27; Stop 06/30/18 at 01:56 Ondansetron HCl (Zofran Inj) 4 mg ER BRIDGE PRN IV NAUSEA/VOMITING; Start 06/29/18 at 13:30; Stop 06/30/18 at 13:29 Acetaminophen (Tylenol Tab) 650 mg ER BRIDGE PRN PO .MILD PAIN 1-3 OR TEMP; Start 06/29/18 at 13:30; Stop 06/30/18 at 13:29 Baclofen (Lioresal) 5 mg QHS PO ; Start 06/29/18 at 21:00 Carbamazepine (Tegretol Xr) 400 mg BID PO ; Start 06/29/18 at 21:00 Cholecalciferol (Vitamin D) 2,000 unit DAILY PO ; Start 06/30/18 at 09:00 Folic Acid (Folic Acid) 1 mg DAILY PO ; Start 06/30/18 at 09:00 Montelukast Sodium (Singulair) 10 mg QHS PO ; Start 06/29/18 at 21:00 Pyridoxine HCl (Vitamin B6) 50 mg DAILY PO ; Start 06/30/18 at 09:00 Venlafaxine HCl (Effexor Xr) 150 mg DAILY PO ; Start 06/30/18 at 09:00 Sodium Chloride 1,000 ml @ 100 mls/hr Q10H IV ; Start 06/29/18 at 14:33; Stop 06/30/18 at 14:32 IV Flush (NS 3 ml) 3 ml PER PROTOCOL IV ; Start 06/29/18 at 15:00 Ondansetron HCl (Zofran Inj) 4 mg Q6H PRN IV NAUSEA/VOMITING; Start 06/29/18 at 15:00 Acetaminophen (Tylenol Tab) 650 mg Q6H PRN PO .PAIN 1-3 OR TEMP; Start 06/29/18 at 15:00 Docusate Sodium (Colace) 100 mg Q12H PRN PO .CONSTIPATION; Start 06/29/18 at 15:00 Magnesium Hydroxide (Milk Of Mag) 30 ml DAILY PRN PO .CONSTIPATION; Start 06/29/18 at 15:00 Pantoprazole (Protonix Tab) 40 mg DAILY@06 PO ; Start 06/30/18 at 06:00 Cefepime HCl 50 ml @ 100 mls/hr Q12 IV ; Start 06/29/18 at 21:00 Azithromycin 250 ml @ 250 mls/hr Q24H IV ; Start 06/29/18 at 15:00 Levalbuterol (Xopenex Neb) 0.63 mg Q4H RESP THERAPY PRN HHN shortness of breath; Start 06/29/18 at 15:00 Guaifenesin/ Codeine Phosphate (Robitussin Ac Liquid Cup) 5 ml Q4H PRN PO cough with pain; Start 06/29/18 at 15:00 Guaifenesin/ Dextromethorphan (Robitussin Dm Liquid Cup) 5 ml Q4H PRN PO cough; Start 06/29/18 at 15:00 Acetaminophen/ Hydrocodone Bitart ([place] (5/325)) 1 tab Q4H PRN PO MODERATE PAIN LEVEL 4-6; Start 06/29/18 at 15:00 Morphine Sulfate (morphine) 2 mg Q6 PRN IV SEVERE PAIN LEVEL 7-10; Start 06/29/18 at 15:00 Coded Allergies: No Known Allergy (Unverified , 06/29/18) Past Surgical History Past Surgical Hx: other (carpal tunnel, right shoulder ) Family History Significant Family History: no pertinent family hx Social History Alcohol Use: none Smoking Status: Never smoker Drug Use: none Exam/Review of Systems Vital Signs Vitals Vital Signs Date Temp Pulse Resp B/P (MAP) Pulse Ox O2 O2 Flow FiO2 Time Delivery Rate 06/29/18 99.3 108 24 144/82 95 Room Air 13:10 (102) 06/29/18 2 11:17 Exam Exam General: Pleasant male, awake and answering questions appropriately. discomfo rt with coughing due to pain HEENT: NC/AT. PERRLA. EOM intact. Neck: Supple Chest: nontender CVS: S1, S2, regular rate and rhythm. no murmurs appreciated Lungs: diffuse coarse breath sounds upper lobes bilaterally. no wheezing appreciated Abd: soft, nontender, nondistended, +BS, no rebound or guarding Ext: no edema, cyanosis, or clubbing. cast on right upper extremity Skin: no rashes or lesions appreciated Neuro: no focal deficits, motor and sensory intact Additional Comments Home medications reviewed PROCEDURE: CTA Chest CLINICAL INDICATION: Shortness of breath, status post wrist surgery. TECHNIQUE: Transaxial computed tomographic images of the chest were obtained following the uneventful administration of 100 mL Omnipaque-350 intravenous contrast according to pulmonary embolism angiography protocol. Post processing 3-D reconstructions were performed. DICOM images are available. Radiation dose: CTDIvol (mGy) = 20.1; total DLP (mGy.cm) = 773.31. One or more of the following dose reduction techniques were used: - Automated exposure control. - Adjustment of the mA and/or kV according to patient size. - Use of iterative reconstruction technique. COMPARISON: Chest radiograph performed on the same day. FINDINGS: Examination is degraded by motion. Heart size is normal. There is no pericardial effusion. Mediastinal vascular structures are normal in course and caliber. No intraluminal filling defect is seen in pulmonary arterial branches to suggest pulmonary embolism. However, evaluation of subsegmental pulmonary arterial system for pulmonary embolism is limited by motion artifacts. There are multiple mildly enlarged mediastinal lymph nodes. For reference, right upper paratracheal lymph node measures 10 mm in short axis. Right lower paratracheal lymph node measures 13 mm in short axis. There is no enlarged axillary lymph node. There is no pleural effusion or pneumothorax. There is a small hiatal hernia with mild to moderate circumferential esophageal wall thickening. Lung windows demonstrates extensive bilateral confluent infiltrates with air bronchograms, most severe in the right upper lobe. There is diffuse hepatic steatosis. Limited images of the upper abdomen are unremarkable. Bone window demonstrates a 6 ml sclerotic lesion in T10 vertebral body, indeterminate. IMPRESSION: 1. No evidence of pulmonary embolism. However, evaluation of subsegmental pulmonary arterial system is limited due to motion artifacts. 2. Extensive bilateral pulmonary infiltrates, most severe in the right upper lobe, compatible with pneumonia. 3. Mild mediastinal lymphadenopathy. 4. Small hiatal hernia with mild to moderate circumferential esophageal wall thickening. Correlation with upper gastrointestinal endoscopy would be helpful. 5. Hepatic steatosis. 6. Other incidental findings, as above. RPTAT: DD Physician Amber Date Time Electronically viewed and signed by Todd Wade Physician on 06/29/2018 14:37 PROCEDURE: XR Chest. CLINICAL INDICATION: chest pain TECHNIQUE: Single frontal view of the chest was obtained COMPARISON: None FINDINGS: The heart and mediastinum are within normal limits. There is an extensive right upper lobe infiltrate. There is no pleural effusion or pneumothorax. RPTAT: AA IMPRESSION: Extensive right upper lobe infiltrate. .Nura Yarbrough MD, MD Date Time Electronically viewed and signed by .Nura Yarbrough MD, MD on 06/29/2018 11:12 FERN NICOLE MD Jun 29, 2018 16:21
[2018-06-29] MEDS ORDERED: SULINDAC 150 MG TAB PO SCH (21:00)
[2018-06-29 22:00] VITALS: BP 144/81; PULSE 75; PULSE 98; PULSE 99; RESP 18
[2018-06-29 22:08] VITALS: Ht 167.6 cm; Wt 112.2 kg
[2018-06-29] MEDS: MONTELUKAST 10 MG TAB PO SCH (22:37)
[2018-06-29] MEDS: BACLOFEN 10 MG TAB PO SCH (22:37)
[2018-06-29] MEDS: CEFEPIME 1GM/50 ML (PMX) 50 ML IV SCH (22:37)
[2018-06-29] MEDS: SOD CHLORIDE 0.9% 1,000 ML IV SCH (22:38)
[2018-06-30] VITALS (12 sets, daily range): BP systolic 125–144; BP diastolic 71–85; PULSE 85–103; RESP 18–20
[2018-06-30] MEDS: SOD CHLORIDE 0.9% 1,000 ML IV SCH ×2 (00:27→10:19)
[2018-06-30] MEDS: HYDROCODONE/APAP (5/325) TAB PO PRN (00:28)
[2018-06-30] MEDS: carBAMAZepine (XR) 200 MG TABSR PO SCH ×3 (00:28→20:59)
[2018-06-30] MEDS: morphine 2 MG INJ IV PRN (04:06)
[2018-06-30] MEDS: PANTOPRAZOLE (EC) 40 MG TAB PO SCH (05:03)
--- NOTE | 2018-06-30 08:41 | PN ---
Date/Time of Note Date/Time of Note DATE: 06/30/18 TIME: 08:41 Assessment/Plan VTE Prophylaxis SCD applied (from Nsg): Yes Pharmacological prophylaxis: NA/contraindicated Pharm contraindication: bleeding Lines/Catheters IV Catheter Type (from Nrsg): Peripheral IV Assessment/Plan Assessment/Plan 1. Bilateral pneumonia, severe in RUL - Discussed with patient need for sputum sample given complaints of hemoptysis - Continue antibiotics and neb tx - possible etiology aspiration or trauma during intubation on 06/27 for surgical intervention. will monitor for further episodes - Supportive treatment 2. Asthma - continue on singular and nebs 3. Mood disorder - continue home medications 4. Recent carpal tunnel surgery - patient aware of post operative instructions - pain control 5. h/o seizure disorder - stable 6. Disposition - Continue monitoring for hemoptysis and sputum culture ordered Result Diagram: 06/30/1852606/30/1827 Results 24hrs Laboratory Tests Test 06/29/18 10:56 06/30/18 05:27 White Blood Count 11.6 #H 8.1 # Red Blood Count 4.49 L 3.89 L Hemoglobin 13.5 L 11.7 L Hematocrit 39.8 L 34.9 L Mean Corpuscular Volume 88.6 89.7 Mean Corpuscular Hemoglobin 30.1 30.1 Mean Corpuscular Hemoglobin Concent 33.9 33.5 Red Cell Distribution Width 12.1 12.2 Platelet Count 188 176 Mean Platelet Volume 9.4 # 9.7 Immature Granulocytes % 0.400 0.600 H Neutrophils % 71.9 71.2 Lymphocytes % 13.5 L 15.4 Monocytes % 13.8 H 12.2 H Eosinophils % 0.1 0.2 Basophils % 0.3 0.4 Nucleated Red Blood Cells % 0.0 0.0 Immature Granulocytes # 0.050 H 0.050 H Neutrophils # 8.3 H 5.8 Lymphocytes # 1.6 1.3 Monocytes # 1.6 H 1.0 H Eosinophils # 0.0 0.0 Basophils # 0.0 0.0 Nucleated Red Blood Cells # 0.0 0.0 Prothrombin Time 13.3 Prothrombin Time Ratio 1.0 INR International Normalized Ratio 1.00 Activated Partial Thromboplast Time 31.5 Sodium Level 140 141 Potassium Level 4.1 4.2 Chloride Level 99 105 Carbon Dioxide Level 29 25 Anion Gap 12 11 Blood Urea Nitrogen 13 13 Creatinine 0.99 0.95 Est Glomerular Filtrat Rate mL/min > 60 > 60 Glucose Level 104 104 Lactic Acid Level 2.0 Calcium Level 9.5 9.1 Total Bilirubin 0.7 Direct Bilirubin 0.00 Indirect Bilirubin 0.7 Aspartate Amino Transf (AST/SGOT) 32 Alanine Aminotransferase (ALT/SGPT) 27 Alkaline Phosphatase 73 Troponin I 0.014 B-Type Natriuretic Peptide 437 H Total Protein 7.8 Albumin 4.6 Globulin 3.20 Albumin/Globulin Ratio 1.43 Magnesium Level 1.9 Subjective 24 Hr Interval Summary Free Text/Dictation Patient states he didn't sleep much last night due to pain in right arm. Also still with chest discomfort with coughing, worse in right upper chest area. Admits to persistent blood in sputum but did not keep sample. Exam/Review of Systems Exam Vitals Vital Signs Date Temp Pulse Resp B/P (MAP) Pulse Ox O2 O2 Flow FiO2 Time Delivery Rate 06/30/18 98 08:17 06/30/18 98.1 20 125/72 92 Nasal 07:49 (89) Cannula 06/29/18 2.0 23:08 Intake and Output 06/29/18 06/29/18 06/30/18 1515:00 23:00 07:00 IntakeIntake Total 250 ml 1450 ml BalanceBalance 250 ml 1450 ml Exam General: Fatigued. distress when coughing due to pain. CVS: S1, S2, regular rate and rhythm. no murmurs appreciated Lungs: diminished breath sound apex but no wheezing appreciated or rhonchi Abd: soft, nontender, nondistended, +BS, no rebound or guarding Ext: no edema, cyanosis, or clubbing. cast on right upper extremity Skin: no rashes or lesions appreciated Neuro: no focal deficits, motor and sensory intact Results Results 24hrs Laboratory Tests Test 06/29/18 10:56 06/30/18 05:27 White Blood Count 11.6 #H 8.1 # Red Blood Count 4.49 L 3.89 L Hemoglobin 13.5 L 11.7 L Hematocrit 39.8 L 34.9 L Mean Corpuscular Volume 88.6 89.7 Mean Corpuscular Hemoglobin 30.1 30.1 Mean Corpuscular Hemoglobin Concent 33.9 33.5 Red Cell Distribution Width 12.1 12.2 Platelet Count 188 176 Mean Platelet Volume 9.4 # 9.7 Immature Granulocytes % 0.400 0.600 H Neutrophils % 71.9 71.2 Lymphocytes % 13.5 L 15.4 Monocytes % 13.8 H 12.2 H Eosinophils % 0.1 0.2 Basophils % 0.3 0.4 Nucleated Red Blood Cells % 0.0 0.0 Immature Granulocytes # 0.050 H 0.050 H Neutrophils # 8.3 H 5.8 Lymphocytes # 1.6 1.3 Monocytes # 1.6 H 1.0 H Eosinophils # 0.0 0.0 Basophils # 0.0 0.0 Nucleated Red Blood Cells # 0.0 0.0 Prothrombin Time 13.3 Prothrombin Time Ratio 1.0 INR International Normalized Ratio 1.00 Activated Partial Thromboplast Time 31.5 Sodium Level 140 141 Potassium Level 4.1 4.2 Chloride Level 99 105 Carbon Dioxide Level 29 25 Anion Gap 12 11 Blood Urea Nitrogen 13 13 Creatinine 0.99 0.95 Est Glomerular Filtrat Rate mL/min > 60 > 60 Glucose Level 104 104 Lactic Acid Level 2.0 Calcium Level 9.5 9.1 Total Bilirubin 0.7 Direct Bilirubin 0.00 Indirect Bilirubin 0.7 Aspartate Amino Transf (AST/SGOT) 32 Alanine Aminotransferase (ALT/SGPT) 27 Alkaline Phosphatase 73 Troponin I 0.014 B-Type Natriuretic Peptide 437 H Total Protein 7.8 Albumin 4.6 Globulin 3.20 Albumin/Globulin Ratio 1.43 Magnesium Level 1.9 Medications Medication Current Medications Baclofen (Lioresal) 5 mg QHS PO Last administered on 06/29/18at 22:37; Admin Dose 5 MG; Start 06/29/18 at 21:00 Carbamazepine (Tegretol Xr) 400 mg BID PO Last administered on 06/30/18at 00:28; Admin Dose 400 MG; Start 06/29/18 at 21:00 Cholecalciferol (Vitamin D) 2,000 unit DAILY PO ; Start 06/30/18 at 09:00 Folic Acid (Folic Acid) 1 mg DAILY PO ; Start 06/30/18 at 09:00 Montelukast Sodium (Singulair) 10 mg QHS PO Last administered on 06/29/18at 22:37; Admin Dose 10 MG; Start 06/29/18 at 21:00 Pyridoxine HCl (Vitamin B6) 50 mg DAILY PO ; Start 06/30/18 at 09:00 Venlafaxine HCl (Effexor Xr) 150 mg DAILY PO ; Start 06/30/18 at 09:00 Sodium Chloride 1,000 ml @ 100 mls/hr Q10H IV Last administered on 06/30/18at 00:27; Admin Dose 100 MLS/HR; Start 06/29/18 at 14:33; Stop 06/30/18 at 14:32 IV Flush (NS 3 ml) 3 ml PER PROTOCOL IV ; Start 06/29/18 at 15:00 Ondansetron HCl (Zofran Inj) 4 mg Q6H PRN IV NAUSEA/VOMITING; Start 06/29/18 at 15:00 Acetaminophen (Tylenol Tab) 650 mg Q6H PRN PO .PAIN 1-3 OR TEMP; Start 06/29/18 at 15:00 Docusate Sodium (Colace) 100 mg Q12H PRN PO .CONSTIPATION; Start 06/29/18 at 15:00 Magnesium Hydroxide (Milk Of Mag) 30 ml DAILY PRN PO .CONSTIPATION; Start 06/29/18 at 15:00 Pantoprazole (Protonix Tab) 40 mg DAILY@06 PO Last administered on 06/30/18at 05:03; Admin Dose 40 MG; Start 06/30/18 at 06:00 Cefepime HCl 50 ml @ 100 mls/hr Q12 IV Last administered on 06/29/18at 22:37; Admin Dose 100 MLS/HR; Start 06/29/18 at 21:00 Azithromycin 250 ml @ 250 mls/hr Q24H IV Last administered on 06/29/18at 16:20; Admin Dose 250 MLS/HR; Start 06/29/18 at 15:00 Levalbuterol (Xopenex Neb) 0.63 mg Q4H RESP THERAPY PRN HHN shortness of breath; Start 06/29/18 at 15:00 Guaifenesin/ Codeine Phosphate (Robitussin Ac Liquid Cup) 5 ml Q4H PRN PO cough with pain; Start 06/29/18 at 15:00 Guaifenesin/ Dextromethorphan (Robitussin Dm Liquid Cup) 5 ml Q4H PRN PO cough; Start 06/29/18 at 15:00 Acetaminophen/ Hydrocodone Bitart ([place] (5/325)) 1 tab Q4H PRN PO MODERATE PAIN LEVEL 4-6 Last administered on 06/30/18at 00:28; Admin Dose 1 TAB; Start 06/29/18 at 15:00 Morphine Sulfate (morphine) 2 mg Q6 PRN IV SEVERE PAIN LEVEL 7-10 Last administered on 06/30/18at 04:06; Admin Dose 2 MG; Start 06/29/18 at 15:00 FERN NICOLE MD Jun 30, 2018 08:41
[2018-06-30] MEDS: PYRIDOXINE 50 MG TAB PO SCH (09:21)
[2018-06-30] MEDS: VENLAFAXINE (XR) 75 MG CAP PO SCH (09:21)
[2018-06-30] MEDS: FOLIC ACID 1 MG TAB PO SCH (09:21)
[2018-06-30] MEDS: CHOLECALCIFEROL 1,000 UNIT TAB PO SCH (09:21)
[2018-06-30] MEDS: CEFEPIME 1GM/50 ML (PMX) 50 ML IV SCH ×2 (09:22→20:59)
[2018-06-30] MEDS: AZITHROMYCIN 500MG/NS (PMX) 250 ML IV SCH (16:11)
--- NOTE | 2018-06-30 16:37 | CONS ---
Assessment/Plan Assessment/Plan Assessment/Plan (Daily) IMP: 1. B/L perihilar and upper lung zone airspace opacities--imaging findings concerning for DAH though clinical history is not. Also consider aspiration pneumonitis and negative pressure pulmonary edema related to general anesthesia and intubation 3 days prior. RECS: 1. De-escalate abx 2. Check UA; ANCA; LATANYA 3. Quantify hemoptysis 4. Follow H/H Consultation Date/Type/Reason Admit Date/Time 06/29/18 1400 Date of Consultation: Jun 30, 2018 Type of Consult Pulm Date/Time of Note DATE: 06/30/18 TIME: 16:31 Hx of Present Illness Briefly, this is a 42-year-old man with a history of asthma, s/p carpel tunnel release surgery on 06/27/2018 with post-op hypoxemia, d/c'ed home presents with cough with hemoptysis, fevers, and mild hypoxemia. No history of sick contacts; flu-like symptoms or hematuria. Constitutional: no complaints Eyes: no complaints ENT: no complaints Respiratory: cough, pleuritic pain, sputum Cardiovascular: no complaints Gastrointestinal: no complaints Genitourinary: no complaints Musculoskeletal: no complaints Skin: no complaints Neurologic: no complaints Endocrine: no complaints Past Medical History asthma Medical History: other (asthma, mood disorder) Home Meds Reported Medications Pyridoxine Hcl (Vitamin B6) 50 Mg Tab, 50 MG PO DAILY, TAB 06/29/18 Sulindac* (Clinoril*) 150 Mg Tab, 37.5 MG PO BID, TAB 06/29/18 Cholecalciferol* (Vitamin D3*) 1,000 Unit Tablet, 2000 UNIT PO DAILY, TAB 06/29/18 Folic Acid* (Folic Acid*) 1 Mg Tablet, 1 MG PO DAILY, TAB 06/29/18 Baclofen* (Baclofen*) 10 Mg Tablet, 5 MG PO QHS, TAB 06/29/18 Montelukast Sodium* (Singulair*) 10 Mg Tablet, 10 MG PO QHS 07/11/11 Simvastatin (Simvastatin) 40 Mg Tablet, 40 MG PO 07/11/11 Sulfamethoxazole-Trimethoprim* (Bactrim* DS) 1 Tab Tab, 1 TAB PO BID 07/11/11 Carbamazepine* (Tegretol Xr*) 400 Mg Tab.sr.12h, 400 MG PO BID 07/11/11 Venlafaxine Hcl* (Effexor XR*) 150 Mg Cap.sr.24h, 150 MG PO DAILY 07/11/11 Discontinued Reported Medications [No New Meds] No Conflict Check 08/05/11 Doxycycline Hyclate (Doxycycline Hyclate) 100 Mg Capsule, 100 MG PO BID 07/11/11 Pseudoephedrine Hcl (Sudogest) 30 Mg Tablet, 30 MG PO BID 07/11/11 Discontinued Scripts Cyclobenzaprine Hcl* (Cyclobenzaprine Hcl*) 10 Mg Tablet, 10 MG PO QHS, #7 TAB Prov:MICHELLE FLOR PA-C 09/10/16 Naproxen* (Naprosyn*) 500 Mg Tablet, 500 MG PO BID PRN for PAIN AND/OR INFLAMMATION, #30 TAB Prov:MICHELLE FLORC 09/10/16 Tramadol HCl (Tramadol HCl) 50 Mg Tablet, 50 MG PO Q4 PRN for PAIN, #20 TAB Prov:MICHELLE FLOR PA-C 09/10/16 Guaifenesin-Dextromethorphan* (Robitussin* DM) 100MG/10MG/5ML Syrup, 10 ML PO Q4H PRN for COUGH for 5 Days, ML Prov:MICHELLE FLOR PA-C 09/10/16 Ondansetron (Ondansetron Odt) 4 Mg Tab.rapdis, 4 MG PO Q6H PRN for NAUSEA AND/OR VOMITING, #15 TAB Prov:DEEPA PEREZ PA-C 05/14/16 Medications Current Medications Baclofen (Lioresal) 5 mg QHS PO Last administered on 06/29/18at 22:37; Admin Dose 5 MG; Start 06/29/18 at 21:00 Carbamazepine (Tegretol Xr) 400 mg BID PO Last administered on 06/30/18at 09:21; Admin Dose 400 MG; Start 06/29/18 at 21:00 Cholecalciferol (Vitamin D) 2,000 unit DAILY PO Last administered on 06/30/18 09:21; Admin Dose 2,000 UNIT; Start 06/30/18 at 09:00 Folic Acid (Folic Acid) 1 mg DAILY PO Last administered on 06/30/18at 09:21; A dmin Dose 1 MG; Start 06/30/18 at 09:00 Montelukast Sodium (Singulair) 10 mg QHS PO Last administered on 06/29/18at 22:37; Admin Dose 10 MG; Start 06/29/18 at 21:00 Pyridoxine HCl (Vitamin B6) 50 mg DAILY PO Last administered on 06/30/18at 09:21; Admin Dose 50 MG; Start 06/30/18 at 09:00 Venlafaxine HCl (Effexor Xr) 150 mg DAILY PO Last administered on 06/30/18at 09:21; Admin Dose 150 MG; Start 06/30/18 at 09:00 IV Flush (NS 3 ml) 3 ml PER PROTOCOL IV ; Start 06/29/18 at 15:00 Ondansetron HCl (Zofran Inj) 4 mg Q6H PRN IV NAUSEA/VOMITING; Start 06/29/18 at 15:00 Acetaminophen (Tylenol Tab) 650 mg Q6H PRN PO .PAIN 1-3 OR TEMP; Start 06/29/18 at 15:00 Docusate Sodium (Colace) 100 mg Q12H PRN PO .CONSTIPATION; Start 06/29/18 at 15:00 Magnesium Hydroxide (Milk Of Mag) 30 ml DAILY PRN PO .CONSTIPATION; Start 06/29/18 at 15:00 Pantoprazole (Protonix Tab) 40 mg DAILY@06 PO Last administered on 06/30/18at 05:03; Admin Dose 40 MG; Start 06/30/18 at 06:00 Cefepime HCl 50 ml @ 100 mls/hr Q12 IV Last administered on 06/30/18at 09:22; Admin Dose 100 MLS/HR; Start 06/29/18 at 21:00 Azithromycin 250 ml @ 250 mls/hr Q24H IV Last administered on 06/30/18at 16:11; Admin Dose 250 MLS/HR; Start 06/29/18 at 15:00 Levalbuterol (Xopenex Neb) 0.63 mg Q4H RESP THERAPY PRN HHN shortness of breath; Start 06/29/18 at 15:00 Guaifenesin/ Codeine Phosphate (Robitussin Ac Liquid Cup) 5 ml Q4H PRN PO cough with pain; Start 06/29/18 at 15:00 Guaifenesin/ Dextromethorphan (Robitussin Dm Liquid Cup) 5 ml Q4H PRN PO cough; Start 06/29/18 at 15:00 Acetaminophen/ Hydrocodone Bitart ([place] (5/325)) 1 tab Q4H PRN PO MODERATE PAIN LEVEL 4-6 Last administered on 06/30/18at 00:28; Admin Dose 1 TAB; Start at 15:00 Morphine Sulfate (morphine) 2 mg Q6 PRN IV SEVERE PAIN LEVEL 7-10 Last administered on 06/30/18at 04:06; Admin Dose 2 MG; Start 06/29/18 at 15:00 Allergies: Coded Allergies: No Known Allergy (Unverified , 06/29/18) Past Surgical History Past Surgical Hx: no surgical history, other (carpal tunnel, right shoulder ) Social History Alcohol Use: none Smoking Status: Never smoker Drug Use: none Exam/Review of Systems Exam Vitals Vital Signs Date Temp Pulse Resp B/P (MAP) Pulse Ox O2 O2 Flow FiO2 Time Delivery Rate 06/30/18 99 16:06 06/30/18 98.3 20 144/71 91 Room Air 15:48 (95) 06/30/18 2.0 08:00 Intake and Output 06/29/18 06/29/18 06/30/18 1515:00 23:00 07:00 IntakeIntake Total 250 ml 1450 ml BalanceBalance 250 ml 1450 ml Constitutional: alert, oriented, well developed Psych: no complaints, nl mood/affect Head: normocephalic, atraumatic Eyes: nl conjunctiva, EOMI, nl lids, nl sclera ENMT: nl external ears & nose, nl lips & teeth, nl nasal mucosa & septum, mucosa pink and moist Neck: supple, non-tender Respiratory: wheezing Cardiovascular: regular rate and rhythm, nl pulses Gastrointestinal: soft, nl liver, spleen, non-tender Musculoskeletal: nl extremities to inspection Extremities: normal pulses Neurological: PAY CLERK II-XII intact, nl mental status, nl speech, DTR's symmetric Results Result Diagram: 06/30/1852606/30/18 05 Results 24hrs Laboratory Tests Test 06/30/18 05:27 White Blood Count 8.1 # Red Blood Count 3.89 L Hemoglobin 11.7 L Hematocrit 34.9 L Mean Corpuscular Volume 89.7 Mean Corpuscular Hemoglobin 30.1 Mean Corpuscular Hemoglobin Concent 33.5 Red Cell Distribution Width 12.2 Platelet Count 176 Mean Platelet Volume 9.7 Immature Granulocytes % 0.600 H Neutrophils % 71.2 Lymphocytes % 15.4 Monocytes % 12.2 H Eosinophils % 0.2 Basophils % 0.4 Nucleated Red Blood Cells % 0.0 Immature Granulocytes # 0.050 H Neutrophils # 5.8 Lymphocytes # 1.3 Monocytes # 1.0 H Eosinophils # 0.0 Basophils # 0.0 Nucleated Red Blood Cells # 0.0 Sodium Level 141 Potassium Level 4.2 Chloride Level 105 Carbon Dioxide Level 25 Anion Gap 11 Blood Urea Nitrogen 13 Creatinine 0.95 Est Glomerular Filtrat Rate mL/min > 60 Glucose Level 104 Calcium Level 9.1 Magnesium Level 1.9 Medications Medication Current Medications Baclofen (Lioresal) 5 mg QHS PO Last administered on 06/29/18 22:37; Admin Dose 5 MG; Start 06/29/18 at 21:00 Carbamazepine (Tegretol Xr) 400 mg BID PO Last administered on 06/30/18 09:21; Admin Dose 400 MG; Start 06/29/18 at 21:00 Cholecalciferol (Vitamin D) 2,000 unit DAILY PO Last administered on 06/30/18 09:21; Admin Dose 2,000 UNIT; Start 06/30/18 at 09:00 Folic Acid (Folic Acid) 1 mg DAILY PO Last administered on 06/30/18 09:21; Admin Dose 1 MG; Start 06/30/18 at 09:00 Montelukast Sodium (Singulair) 10 mg QHS PO Last administered on 06/29/18 22:37; Admin Dose 10 MG; Start 06/29/18 at 21:00 Pyridoxine HCl (Vitamin B6) 50 mg DAILY PO Last administered on 06/30/18 09:21; Admin Dose 50 MG; Start 06/30/18 at 09:00 Venlafaxine HCl (Effexor Xr) 150 mg DAILY PO Last administered on 06/30/18 09:21; Admin Dose 150 MG; Start 06/30/18 at 09:00 IV Flush (NS 3 ml) 3 ml PER PROTOCOL IV ; Start 06/29/18 at 15:00 Ondansetron HCl (Zofran Inj) 4 mg Q6H PRN IV NAUSEA/VOMITING; Start 06/29/18 at 15:00 Acetaminophen (Tylenol Tab) 650 mg Q6H PRN PO .PAIN 1-3 OR TEMP; Start 06/29/18 at 15:00 Docusate Sodium (Colace) 100 mg Q12H PRN PO .CONSTIPATION; Start 06/29/18 at 15:00 Magnesium Hydroxide (Milk Of Mag) 30 ml DAILY PRN PO .CONSTIPATION; Start 06/29/18 at 15:00 Pantoprazole (Protonix Tab) 40 mg DAILY@06 PO Last administered on 06/30/18 05:03; Admin Dose 40 MG; Start 06/30/18 at 06:00 Cefepime HCl 50 ml @ 100 mls/hr Q12 IV Last administered on 06/30/18at 09:22; Admin Dose 100 MLS/HR; Start 06/29/18 at 21:00 Azithromycin 250 ml @ 250 mls/hr Q24H IV Last administered on 06/30/18at 16:11; Admin Dose 250 MLS/HR; Start 06/29/18 at 15:00 Levalbuterol (Xopenex Neb) 0.63 mg Q4H RESP THERAPY PRN HHN shortness of breath; Start 06/29/18 at 15:00 Guaifenesin/ Codeine Phosphate (Robitussin Ac Liquid Cup) 5 ml Q4H PRN PO cough with pain; Start 06/29/18 at 15:00 Guaifenesin/ Dextromethorphan (Robitussin Dm Liquid Cup) 5 ml Q4H PRN PO cough; Start 06/29/18 at 15:00 Acetaminophen/ Hydrocodone Bitart ([place] (5/325)) 1 tab Q4H PRN PO MODERATE PAIN LEVEL 4-6 Last administered on 06/30/18at 00:28; Admin Dose 1 TAB; Start 06/29/18 at 15:00 Morphine Sulfate (morphine) 2 mg Q6 PRN IV SEVERE PAIN LEVEL 7-10 Last administered on 06/30/18at 04:06; Admin Dose 2 MG; Start 06/29/18 at 15:00 MILLICENT STOKES MD Jun 30, 2018 16:37
[2018-06-30] MEDS: BACLOFEN 10 MG TAB PO SCH (20:59)
[2018-06-30] MEDS: MONTELUKAST 10 MG TAB PO SCH (20:59)
[2018-07-01] VITALS (11 sets, daily range): BP systolic 124–149; BP diastolic 71–90; PULSE 78–97; RESP 18–20
[2018-07-01] MEDS: HYDROCODONE/APAP (5/325) TAB PO PRN (02:34)
[2018-07-01] MEDS: PANTOPRAZOLE (EC) 40 MG TAB PO SCH (06:40)
[2018-07-01] MEDS ORDERED: VANCOMYCIN IV PER PHARMACY XX SCH (07:00)
[2018-07-01] MEDS ORDERED: VANCOMYCIN HCL 2 GM in SOD CHLORIDE 0.9% 500 ML IVPB SCH (07:30)
[2018-07-01] MEDS: carBAMAZepine (XR) 200 MG TABSR PO SCH ×2 (08:22→20:51)
[2018-07-01] MEDS: CHOLECALCIFEROL 1,000 UNIT TAB PO SCH (08:22)
[2018-07-01] MEDS: VENLAFAXINE (XR) 75 MG CAP PO SCH (08:22)
[2018-07-01] MEDS: PYRIDOXINE 50 MG TAB PO SCH (08:22)
[2018-07-01] MEDS: FOLIC ACID 1 MG TAB PO SCH (08:22)
--- NOTE | 2018-07-01 09:10 | PN ---
Date/Time of Note Date/Time of Note DATE: 07/01/18 TIME: 09:10 Assessment/Plan VTE Prophylaxis Risk score (from Ns)>0 risk: 7 SCD applied (from [facility] [place]): No SCD contraindicated: low risk/ambulating Pharmacological prophylaxis: NA/contraindicated Pharm contraindication: bleeding Lines/Catheters IV Catheter Type (from [facility]): Saline Lock Assessment/Plan Assessment/Plan 1. Bilateral pneumonia, severe in RUL - Pulm on board and appreciate recommendations. Most likely aspiration pneumonitis vs negative pressure pulm edema - Will transition to PO antibiotics - Sputum cx noted with no growth - s/p outpatient surgical intervention on 06/27 requiring intubation - Supportive treatment 2. Asthma - continue on singular and nebs 3. Mood disorder - continue home medications 4. Recent carpal tunnel surgery - patient aware of post operative instructions. Okay to remove dressing tomorrow 07/02 - pain control 5. h/o seizure disorder - stable 6. + blood cultures - most likely contaminant given patient afebrile and nl WBC - repeat obtained 7. Disposition - Will change to PO antibiotics - Await second set of blood cultures and if negative and respiratory status improves, d/c home Result Diagram: 07/01/18 0511 07/01/18 0511 Results 24hrs Laboratory Tests Test 07/01/18 05:11 White Blood Count 8.3 Red Blood Count 4.45 L Hemoglobin 13.4 L Hematocrit 39.4 L Mean Corpuscular Volume 88.5 Mean Corpuscular Hemoglobin 30.1 Mean Corpuscular Hemoglobin Concent 34.0 Red Cell Distribution Width 12.0 Platelet Count 233 # Mean Platelet Volume 9.3 Immature Granulocytes % 0.500 H Neutrophils % 68.6 Lymphocytes % 19.9 Monocytes % 10.2 Eosinophils % 0.4 Basophils % 0.4 Nucleated Red Blood Cells % 0.0 Immature Granulocytes # 0.040 H Neutrophils # 5.7 Lymphocytes # 1.7 Monocytes # 0.9 Eosinophils # 0.0 Basophils # 0.0 Nucleated Red Blood Cells # 0.0 Sodium Level 141 Potassium Level 4.2 Chloride Level 103 Carbon Dioxide Level 26 Anion Gap 12 Blood Urea Nitrogen 12 Creatinine 0.89 Est Glomerular Filtrat Rate mL/min > 60 Glucose Level 112 Calcium Level 10.1 Subjective 24 Hr Interval Summary Free Text/Dictation Patient states he's still experiencing malaise and coughing with right sided chest discomfort. No acute overnight events. Exam/Review of Systems Exam Vitals Vital Signs Date Temp Pulse Resp B/P (MAP) Pulse Ox O2 O2 Flow FiO2 Time Delivery Rate 07/01/18 78 08:10 07/01/18 97.4 18 124/85 90 07:35 (98) 06/30/18 Nasal 2.0 20:00 Cannula Intake and Output 06/30/18 06/30/18 07/01/18 1515:00 23:00 07:00 IntakeIntake Total 1120 ml 700 ml BalanceBalance 1120 ml 700 ml Exam General: Fatigued. distress when coughing CVS: S1, S2, regular rate and rhythm. no murmurs appreciated Lungs: diminished breath sound apex but no wheezing appreciated or rhonchi Abd: soft, nontender, nondistended, +BS, no rebound or guarding Ext: no edema, cyanosis, or clubbing. cast on right upper extremity Skin: no rashes or lesions appreciated Results Results 24hrs Laboratory Tests Test 07/01/18 05:11 White Blood Count 8.3 Red Blood Count 4.45 L Hemoglobin 13.4 L Hematocrit 39.4 L Mean Corpuscular Volume 88.5 Mean Corpuscular Hemoglobin 30.1 Mean Corpuscular Hemoglobin Concent 34.0 Red Cell Distribution Width 12.0 Platelet Count 233 # Mean Platelet Volume 9.3 Immature Granulocytes % 0.500 H Neutrophils % 68.6 Lymphocytes % 19.9 Monocytes % 10.2 Eosinophils % 0.4 Basophils % 0.4 Nucleated Red Blood Cells % 0.0 Immature Granulocytes # 0.040 H Neutrophils # 5.7 Lymphocytes # 1.7 Monocytes # 0.9 Eosinophils # 0.0 Basophils # 0.0 Nucleated Red Blood Cells # 0.0 Sodium Level 141 Potassium Level 4.2 Chloride Level 103 Carbon Dioxide Level 26 Anion Gap 12 Blood Urea Nitrogen 12 Creatinine 0.89 Est Glomerular Filtrat Rate mL/min > 60 Glucose Level 112 Calcium Level 10.1 Medications Medication Current Medications Baclofen (Lioresal) 5 mg QHS PO Last administered on 06/30/18at 20:59; Admin Dose 5 MG; Start 06/29/18 at 21:00 Carbamazepine (Tegretol Xr) 400 mg BID PO Last administered on 06/30/18at 20:59; Admin Dose 400 MG; Start 06/29/18 at 21:00 Cholecalciferol (Vitamin D) 2,000 unit DAILY PO Last administered on 06/30/18 09:21; Admin Dose 2,000 UNIT; Start 06/30/18 at 09:00 Folic Acid (Folic Acid) 1 mg DAILY PO Last administered on 06/30/18 09:21; Admin Dose 1 MG; Start 06/30/18 at 09:00 Montelukast Sodium (Singulair) 10 mg QHS PO Last administered on 06/30/18 20:59; Admin Dose 10 MG; Start 06/29/18 at 21:00 Pyridoxine HCl (Vitamin B6) 50 mg DAILY PO Last administered on 06/30/18 09:21; Admin Dose 50 MG; Start 06/30/18 at 09:00 Venlafaxine HCl (Effexor Xr) 150 mg DAILY PO Last administered on 06/30/18 09:21; Admin Dose 150 MG; Start 06/30/18 at 09:00 IV Flush (NS 3 ml) 3 ml PER PROTOCOL IV ; Start 06/29/18 at 15:00 Ondansetron HCl (Zofran Inj) 4 mg Q6H PRN IV NAUSEA/VOMITING; Start 06/29/18 at 15:00 Acetaminophen (Tylenol Tab) 650 mg Q6H PRN PO .PAIN 1-3 OR TEMP; Start 06/29/18 at 15:00 Docusate Sodium (Colace) 100 mg Q12H PRN PO .CONSTIPATION; Start 06/29/18 at 15:00 Magnesium Hydroxide (Milk Of Mag) 30 ml DAILY PRN PO .CONSTIPATION; Start 06/29/18 at 15:00 Pantoprazole (Protonix Tab) 40 mg DAILY@06 PO Last administered on 07/01/18 06:40; Admin Dose 40 MG; Start 06/30/18 at 06:00 Cefepime HCl 50 ml @ 100 mls/hr Q12 IV Last administered on 06/30/18 20:59; Admin Dose 100 MLS/HR; Start 06/29/18 at 21:00; Stop 07/01/18 at 14:00 Azithromycin 250 ml @ 250 mls/hr Q24H IV Last administered on 06/30/18at 16:11; Admin Dose 250 MLS/HR; Start 06/29/18 at 15:00 Levalbuterol (Xopenex Neb) 0.63 mg Q4H RESP THERAPY PRN HHN shortness of breath; Start 06/29/18 at 15:00 Guaifenesin/ Codeine Phosphate (Robitussin Ac Liquid Cup) 5 ml Q4H PRN PO cough with pain; Start 06/29/18 at 15:00 Guaifenesin/ Dextromethorphan (Robitussin Dm Liquid Cup) 5 ml Q4H PRN PO cough; Start 06/29/18 at 15:00 Acetaminophen/ Hydrocodone Bitart ([place] (5/325)) 1 tab Q4H PRN PO MODERATE PAIN LEVEL 4-6 Last administered on 07/01/18at 02:34; Admin Dose 1 TAB; Start 06/29/18 at 15:00 Morphine Sulfate (morphine) 2 mg Q6 PRN IV SEVERE PAIN LEVEL 7-10 Last administered on 06/30/18at 04:06; Admin Dose 2 MG; Start 06/29/18 at 15:00 Vancomycin HCl (Vanco Iv Per Pharmacy) VANCOMYCIN PER PHARMACY PER PROTOCOL XX ; Start 07/01/18 at 07:00 Vancomycin HCl 2 gm/Sodium Chloride 500 ml @ 125 mls/hr ONCE IVPB ; Start 07/01/18 at 07:30; Stop 07/01/18 at 11:29 Vancomycin HCl 1.5 gm/Sodium Chloride 250 ml @ 83.333 mls/ hr Q12H IVPB ; Start 07/01/18 at 22:00 Cefepime HCl 50 ml @ 100 mls/hr Q12 IVPB ; Start 07/01/18 at 21:00 FERN NICOLE MD Jul 01, 2018 09:10
[2018-07-01] MEDS: CEFEPIME 1GM/50 ML (PMX) 50 ML IV SCH (09:13)
--- NOTE | 2018-07-01 14:45 | CONS ---
Consult Date/Type/Reason Admit Date/Time Jun 29, 2018 at 13:28 Initial Consult Date 06/30/18 Type of Consultation: Pulm Date/Time of Note DATE: 07/01/18 TIME: 14:43 Subjective Much better today. Less SOB. Objective Vitals Vital Signs Date Temp Pulse Resp B/P (MAP) Pulse Ox O2 O2 Flow FiO2 Time Delivery Rate 07/01/18 91 12:25 07/01/18 98.6 18 137/78 93 11:47 (97) 07/01/18 Nasal 2.0 08:00 Cannula Intake and Output 06/30/18 06/30/18 07/01/18 1515:00 23:00 07:00 IntakeIntake Total 1120 ml 700 ml BalanceBalance 1120 ml 700 ml Exam HEENT: Neck supple; no JVD; no LAD CVS: RRR, S1 and S2 CHEST: Clear ABD: Soft, NT, + BS EXT: No c/c/e Results/Medications Result Diagram: 07/01/18 0511 07/01/18 0511 Results 24 hrs Laboratory Tests Test 07/01/18 05:11 White Blood Count 8.3 Red Blood Count 4.45 L Hemoglobin 13.4 L Hematocrit 39.4 L Mean Corpuscular Volume 88.5 Mean Corpuscular Hemoglobin 30.1 Mean Corpuscular Hemoglobin Concent 34.0 Red Cell Distribution Width 12.0 Platelet Count 233 # Mean Platelet Volume 9.3 Immature Granulocytes % 0.500 H Neutrophils % 68.6 Lymphocytes % 19.9 Monocytes % 10.2 Eosinophils % 0.4 Basophils % 0.4 Nucleated Red Blood Cells % 0.0 Immature Granulocytes # 0.040 H Neutrophils # 5.7 Lymphocytes # 1.7 Monocytes # 0.9 Eosinophils # 0.0 Basophils # 0.0 Nucleated Red Blood Cells # 0.0 Sodium Level 141 Potassium Level 4.2 Chloride Level 103 Carbon Dioxide Level 26 Anion Gap 12 Blood Urea Nitrogen 12 Creatinine 0.89 Est Glomerular Filtrat Rate mL/min > 60 Glucose Level 112 Calcium Level 10.1 Home Meds Reported Medications Pyridoxine Hcl (Vitamin B6) 50 Mg Tab, 50 MG PO DAILY, TAB 06/29/18 Sulindac* (Clinoril*) 150 Mg Tab, 37.5 MG PO BID, TAB 06/29/18 Cholecalciferol* (Vitamin D3*) 1,000 Unit Tablet, 2000 UNIT PO DAILY, TAB 06/29/18 Folic Acid* (Folic Acid*) 1 Mg Tablet, 1 MG PO DAILY, TAB 06/29/18 Baclofen* (Baclofen*) 10 Mg Tablet, 5 MG PO QHS, TAB 06/29/18 Montelukast Sodium* (Singulair*) 10 Mg Tablet, 10 MG PO QHS 07/11/11 Simvastatin (Simvastatin) 40 Mg Tablet, 40 MG PO 07/11/11 Sulfamethoxazole-Trimethoprim* (Bactrim* DS) 1 Tab Tab, 1 TAB PO BID 07/11/11 Carbamazepine* (Tegretol Xr*) 400 Mg Tab.sr.12h, 400 MG PO BID 07/11/11 Venlafaxine Hcl* (Effexor XR*) 150 Mg Cap.sr.24h, 150 MG PO DAILY 07/11/11 Discontinued Reported Medications [No New Meds] No Conflict Check 08/05/11 Doxycycline Hyclate (Doxycycline Hyclate) 100 Mg Capsule, 100 MG PO BID 07/11/11 Pseudoephedrine Hcl (Sudogest) 30 Mg Tablet, 30 MG PO BID 07/11/11 Discontinued Scripts Cyclobenzaprine Hcl* (Cyclobenzaprine Hcl*) 10 Mg Tablet, 10 MG PO QHS, #7 TAB Prov:MICHELLE FLOR PA-C 09/10/16 Naproxen* (Naprosyn*) 500 Mg Tablet, 500 MG PO BID PRN for PAIN AND/OR INFLAMMATION, #30 TAB Prov:MICHELLE FLOR PA-C 09/10/16 Tramadol HCl (Tramadol HCl) 50 Mg Tablet, 50 MG PO Q4 PRN for PAIN, #20 TAB Prov:MICHELLE FLOR PA-C 09/10/16 Guaifenesin-Dextromethorphan* (Robitussin* DM) 100MG/10MG/5ML Syrup, 10 ML PO Q4H PRN for COUGH for 5 Days, ML Prov:MICHELLE FLOR PA-C 09/10/16 Ondansetron (Ondansetron Odt) 4 Mg Tab.rapdis, 4 MG PO Q6H PRN for NAUSEA AND/OR VOMITING, #15 TAB Prov:DEEPA PEREZ PA-C 05/14/16 Medications Current Medications Baclofen (Lioresal) 5 mg QHS PO Last administered on 06/30/18 20:59; Admin Dose 5 MG; Start 06/29/18 at 21:00 Carbamazepine (Tegretol Xr) 400 mg BID PO Last administered on 07/01/18 08:22; Admin Dose 400 MG; Start 06/29/18 at 21:00 Cholecalciferol (Vitamin D) 2,000 unit DAILY PO Last administered on 07/01/18 08:22; Admin Dose 2,000 UNIT; Start 06/30/18 at 09:00 Folic Acid (Folic Acid) 1 mg DAILY PO Last administered on 07/01/18 08:22; Admin Dose 1 MG; Start 06/30/18 at 09:00 Montelukast Sodium (Singulair) 10 mg QHS PO Last administered on 06/30/18 20:59; Admin Dose 10 MG; Start 06/29/18 at 21:00 Pyridoxine HCl (Vitamin B6) 50 mg DAILY PO Last administered on 07/01/18 08:22; Admin Dose 50 MG; Start 06/30/18 at 09:00 Venlafaxine HCl (Effexor Xr) 150 mg DAILY PO Last administered on 07/01/18 08:22; Admin Dose 150 MG; Start 06/30/18 at 09:00 IV Flush (NS 3 ml) 3 ml PER PROTOCOL IV ; Start 06/29/18 at 15:00 Ondansetron HCl (Zofran Inj) 4 mg Q6H PRN IV NAUSEA/VOMITING; Start 06/29/18 at 15:00 Acetaminophen (Tylenol Tab) 650 mg Q6H PRN PO .PAIN 1-3 OR TEMP; Start 06/29/18 at 15:00 Docusate Sodium (Colace) 100 mg Q12H PRN PO .CONSTIPATION; Start 06/29/18 at 15:00 Magnesium Hydroxide (Milk Of Mag) 30 ml DAILY PRN PO .CONSTIPATION; Start at 15:00 Pantoprazole (Protonix Tab) 40 mg DAILY@06 PO Last administered on 07/01/18 06:40; Admin Dose 40 MG; Start 06/30/18 at 06:00 Azithromycin 250 ml @ 250 mls/hr Q24H IV Last administered on 3/23/19at 16:11; Admin Dose 250 MLS/HR; Start 06/29/18 at 15:00 Levalbuterol (Xopenex Neb) 0.63 mg Q4H RESP THERAPY PRN HHN shortness of breath; Start 06/29/18 at 15:00 Guaifenesin/ Codeine Phosphate (Robitussin Ac Liquid Cup) 5 ml Q4H PRN PO cough with pain; Start 06/29/18 at 15:00 Guaifenesin/ Dextromethorphan (Robitussin Dm Liquid Cup) 5 ml Q4H PRN PO cough; Start 06/29/18 at 15:00 Acetaminophen/ Hydrocodone Bitart ([place] (5/325)) 1 tab Q4H PRN PO MODERATE PAIN LEVEL 4-6 Last administered on 07/01/18at 02:34; Admin Dose 1 TAB; Start 06/29/18 at 15:00 Morphine Sulfate (morphine) 2 mg Q6 PRN IV SEVERE PAIN LEVEL 7-10 Last administered on 06/30/18at 04:06; Admin Dose 2 MG; Start 06/29/18 at 15:00 Amoxicillin/ Clavulanate Potassium (Augmentin) 875 mg BID PO ; Start 07/01/18 at 15:00 Assessment/Plan Assessment/Plan (Daily) IMP: 1. B/L perihilar and upper lung zone airspace opacities---most c/w aspiration pneumonitis vs negative pressure pulmonary edema related to general anesthesia and intubation 3 days prior. RECS: 1. De-escalate abx 2. Anticipate d/c home tomorrow MILLICENT STOKES MD Jul 01, 2018 14:44
[2018-07-01] MEDS: AMOXICILLIN/CLAV 875 MG TAB PO SCH ×2 (16:01→20:51)
[2018-07-01] MEDS: AZITHROMYCIN 500MG/NS (PMX) 250 ML IV SCH (16:02)
[2018-07-01] MEDS: MONTELUKAST 10 MG TAB PO SCH (20:51)
[2018-07-01] MEDS: BACLOFEN 10 MG TAB PO SCH (20:51)
[2018-07-01] MEDS ORDERED: CEFEPIME 2GM/50 ML IVPB SCH (21:00)
[2018-07-01] MEDS: morphine 2 MG INJ IV PRN (21:52)
[2018-07-01] MEDS ORDERED: VANCOMYCIN HCL 1.5 GM in SOD CHLORIDE 0.9% 250 ML IVPB SCH (22:00)
[2018-07-02] VITALS (9 sets, daily range): BP systolic 119–143; BP diastolic 64–87; PULSE 70–98; RESP 18–20
[2018-07-02] MEDS: PANTOPRAZOLE (EC) 40 MG TAB PO SCH (06:41)
[2018-07-02] MEDS: FOLIC ACID 1 MG TAB PO SCH (09:12)
[2018-07-02] MEDS: CHOLECALCIFEROL 1,000 UNIT TAB PO SCH (09:12)
[2018-07-02] MEDS: VENLAFAXINE (XR) 75 MG CAP PO SCH (09:12)
[2018-07-02] MEDS: PYRIDOXINE 50 MG TAB PO SCH (09:13)
[2018-07-02] MEDS: AMOXICILLIN/CLAV 875 MG TAB PO SCH ×2 (09:13→20:49)
[2018-07-02] MEDS: carBAMAZepine (XR) 200 MG TABSR PO SCH ×2 (09:13→20:49)
--- NOTE | 2018-07-02 11:26 | CONS ---
Consult Date/Type/Reason Admit Date/Time Jun 29, 2018 at 13:28 Initial Consult Date 06/30/18 Type of Consult Pulmonary Date/Time of Note DATE: 07/02/18 TIME: 11:24 Subjective Patient better this morning. No respiratory distress ambulating without difficulty. Objective Vital Signs Date Temp Pulse Resp B/P (MAP) Pulse Ox O2 O2 Flow FiO2 Time Delivery Rate 07/02/18 97.5 98 20 119/64 98 Nasal 11:10 (82) Cannula 07/01/18 2.0 08:00 Intake and Output 07/01/18 07/01/18 07/02/18 1414:59 22:59 06:59 IntakeIntake Total 1300 ml 600 ml BalanceBalance 1300 ml 600 ml Exam GENERAL: VITAL SIGNS: per chart NECK: Supple. No JVD or lymphadenopathy. CARDIAC EXAM: S1, S2. No added sounds or murmurs. CHEST: clear bilaterally, No added sounds, rales or wheezes ABDOMEN: Soft, nontender. No guarding or rebound. EXTREMITIES: No cyanosis, clubbing or edema. NEUROLOGIC: Generalized weakness. No focal deficits. Results/Medications Result Diagram: 07/01/1851007/01/18510 Medications Current Medications Baclofen (Lioresal) 5 mg QHS PO Last administered on 07/01/18 20:51; Admin Dose 5 MG; Start 06/29/18 at 21:00 Carbamazepine (Tegretol Xr) 400 mg BID PO Last administered on 07/02/18 09:13; Admin Dose 400 MG; Start 06/29/18 at 21:00 Cholecalciferol (Vitamin D) 2,000 unit DAILY PO Last administered on 07/02/18 09:12; Admin Dose 2,000 UNIT; Start 06/30/18 at 09:00 Folic Acid (Folic Acid) 1 mg DAILY PO Last administered on 07/02/18 09:12; Admin Dose 1 MG; Start 06/30/18 at 09:00 Montelukast Sodium (Singulair) 10 mg QHS PO Last administered on 07/01/18 20:51; Admin Dose 10 MG; Start 06/29/18 at 21:00 Pyridoxine HCl (Vitamin B6) 50 mg DAILY PO Last administered on 07/02/18 09:13; Admin Dose 50 MG; Start 06/30/18 at 09:00 Venlafaxine HCl (Effexor Xr) 150 mg DAILY PO Last administered on 07/02/18 09:12; Admin Dose 150 MG; Start 06/30/18 at 09:00 IV Flush (NS 3 ml) 3 ml PER PROTOCOL IV ; Start 06/29/18 at 15:00 Ondansetron HCl (Zofran Inj) 4 mg Q6H PRN IV NAUSEA/VOMITING; Start 06/29/18 at 15:00 Acetaminophen (Tylenol Tab) 650 mg Q6H PRN PO .PAIN 1-3 OR TEMP; Start 06/29/18 at 15:00 Docusate Sodium (Colace) 100 mg Q12H PRN PO .CONSTIPATION; Start 06/29/18 at 15:00 Magnesium Hydroxide (Milk Of Mag) 30 ml DAILY PRN PO .CONSTIPATION; Start 06/29/18 at 15:00 Pantoprazole (Protonix Tab) 40 mg DAILY@06 PO Last administered on 07/02/18 06:41; Admin Dose 40 MG; Start 06/30/18 at 06:00 Azithromycin 250 ml @ 250 mls/hr Q24H IV Last administered on 07/01/18 16:02; Admin Dose 250 MLS/HR; Start 06/29/18 at 15:00 Levalbuterol (Xopenex Neb) 0.63 mg Q4H RESP THERAPY PRN HHN shortness of breath; Start 06/29/18 at 15:00 Guaifenesin/ Codeine Phosphate (Robitussin Ac Liquid Cup) 5 ml Q4H PRN PO cough with pain Last administered on 07/01/18 21:52; Admin Dose 5 ML; Start 06/29/18 at 15:00 Guaifenesin/ Dextromethorphan (Robitussin Dm Liquid Cup) 5 ml Q4H PRN PO cough; Start 06/29/18 at 15:00 Acetaminophen/ Hydrocodone Bitart ([place] (5/325)) 1 tab Q4H PRN PO MODERATE PAIN LEVEL 4-6 Last administered on 07/01/18 02:34; Admin Dose 1 TAB; Start 06/29/18 at 15:00 Morphine Sulfate (morphine) 2 mg Q6 PRN IV SEVERE PAIN LEVEL 7-10 Last administered on 07/01/18 21:52; Admin Dose 2 MG; Start 06/29/18 at 15:00 Amoxicillin/ Clavulanate Potassium (Augmentin) 875 mg BID PO Last administered on 07/02/18at 09:13; Admin Dose 875 MG; Start 07/01/18 at 15:00 Assessment/Plan Hospital Course (Demo Recall) IMP: 1. B/L perihilar and upper lung zone airspace opacities---most c/w aspiration pneumonitis vs negative pressure pulmonary edema related to general anesthesia and intubation 4 days prior. RECS: 1. De-escalate abx DC home today. TABITHA BROWNE MD, [facility] Jul 02, 2018 11:26
[2018-07-02] MEDS ORDERED: VANCOMYCIN IV PER PHARMACY XX SCH (14:00)
--- NOTE | 2018-07-02 14:07 | PN ---
Date/Time of Note Date/Time of Note DATE: 07/02/18 TIME: 14:05 Objective Vitals Vital Signs Date Temp Pulse Resp B/P (MAP) Pulse Ox O2 O2 Flow FiO2 Time Delivery Rate 07/02/18 79 12:39 07/02/18 97.5 20 119/64 98 Nasal 11:10 (82) Cannula 07/01/18 2.0 08:00 Intake and Output 07/01/18 07/01/18 07/02/18 1515:00 23:00 07:00 IntakeIntake Total 1300 ml 600 ml BalanceBalance 1300 ml 600 ml Results Result Diagram: 07/01/18 0511 07/01/18 0511 Medications Medications Current Medications Baclofen (Lioresal) 5 mg QHS PO Last administered on 07/01/18 20:51; Admin Dose 5 MG; Start 06/29/18 at 21:00 Carbamazepine (Tegretol Xr) 400 mg BID PO Last administered on 07/02/18 09:13; Admin Dose 400 MG; Start 06/29/18 at 21:00 Cholecalciferol (Vitamin D) 2,000 unit DAILY PO Last administered on 07/02/18 09:12; Admin Dose 2,000 UNIT; Start 06/30/18 at 09:00 Folic Acid (Folic Acid) 1 mg DAILY PO Last administered on 07/02/18 09:12; Admin Dose 1 MG; Start 06/30/18 at 09:00 Montelukast Sodium (Singulair) 10 mg QHS PO Last administered on 07/01/18 20:51; Admin Dose 10 MG; Start 06/29/18 at 21:00 Pyridoxine HCl (Vitamin B6) 50 mg DAILY PO Last administered on 07/02/18 09:13; Admin Dose 50 MG; Start 06/30/18 at 09:00 Venlafaxine HCl (Effexor Xr) 150 mg DAILY PO Last administered on 07/02/18 09:12; Admin Dose 150 MG; Start 06/30/18 at 09:00 IV Flush (NS 3 ml) 3 ml PER PROTOCOL IV ; Start 06/29/18 at 15:00 Ondansetron HCl (Zofran Inj) 4 mg Q6H PRN IV NAUSEA/VOMITING; Start 06/29/18 at 15:00 Acetaminophen (Tylenol Tab) 650 mg Q6H PRN PO .PAIN 1-3 OR TEMP; Start 06/29/18 at 15:00 Docusate Sodium (Colace) 100 mg Q12H PRN PO .CONSTIPATION; Start 06/29/18 at 15:00 Magnesium Hydroxide (Milk Of Mag) 30 ml DAILY PRN PO .CONSTIPATION; Start 06/29/18 at 15:00 Pantoprazole (Protonix Tab) 40 mg DAILY@06 PO Last administered on 07/02/18 06:41; Admin Dose 40 MG; Start 06/30/18 at 06:00 Azithromycin 250 ml @ 250 mls/hr Q24H IV Last administered on 07/01/18 16:02; Admin Dose 250 MLS/HR; Start 06/29/18 at 15:00 Levalbuterol (Xopenex Neb) 0.63 mg Q4H RESP THERAPY PRN HHN shortness of breath; Start 06/29/18 at 15:00 Guaifenesin/ Codeine Phosphate (Robitussin Ac Liquid Cup) 5 ml Q4H PRN PO cough with pain Last administered on 07/01/18 21:52; Admin Dose 5 ML; Start 06/29/18 at 15:00 Guaifenesin/ Dextromethorphan (Robitussin Dm Liquid Cup) 5 ml Q4H PRN PO cough; Start 06/29/18 at 15:00 Acetaminophen/ Hydrocodone Bitart ([place] (5/325)) 1 tab Q4H PRN PO MODERATE PAIN LEVEL 4-6 Last administered on 07/01/18 02:34; Admin Dose 1 TAB; Start 06/29/18 at 15:00 Morphine Sulfate (morphine) 2 mg Q6 PRN IV SEVERE PAIN LEVEL 7-10 Last administered on 07/01/18 21:52; Admin Dose 2 MG; Start 06/29/18 at 15:00 Amoxicillin/ Clavulanate Potassium (Augmentin) 875 mg BID PO Last administered on 07/02/18 09:13; Admin Dose 875 MG; Start 07/01/18 at 15:00 Vancomycin HCl (Vanco Iv Per Pharmacy) VANCOMYCIN PER PHARMACY PER PROTOCOL XX ; Start 07/02/18 at 14:00; Status UNV VTE Prophylaxis Risk score (from Ns)>0 risk: 6 SCD applied (from Nsg): No SCD contraindication: other Lines/Catheters IV Catheter Type: Ryan in Place: No Assessment/Plan Hospital Course Subjective Patient feeling much better Objective Physical exam General: Patient is laying in bed and answers questions appropriately Mentation: Patient is alert and oriented 4, Head: Normocephalic atraumatic Eyes: EOMI, pupils reactive to light Neck: Supple, nontender, midline Respiratory: Very mild wheezing to no wheezing to auscultation bilaterally Cardiovascular: regular rate, no obvious murmurs Gastrointestinal: non-tender to palpation, bowel sounds heard. Neurological: Moves all extremities spontaneously Skin: No new skin lesions Assessment/Plan + blood culture - most likely contaminant given patient afebrile and nl WBC - repeat obtained, negative so far - ID consulted to clear pt before DC - on vanco 1. Bilateral pneumonia, severe in RUL - Pulm on board and appreciate recommendations. Most likely aspiration p neumonitis vs negative pressure pulm edema - Will transition to PO antibiotics - Sputum cx noted with no growth - s/p outpatient surgical intervention on 06/27 requiring intubation - Supportive treatment 2. Asthma - continue on singular and nebs 3. Mood disorder - continue home medications 4. Recent carpal tunnel surgery - patient aware of post operative instructions. Okay to remove dressing tomorrow 07/02 - pain control 5. h/o seizure disorder - stable 7. Disposition -Awaiting infectious disease consult to clear patient for possible contaminant versus staph bacteremia. ANTONIO VELAZQUEZ Jul 02, 2018 14:07
--- NOTE | 2018-07-02 15:30 | CONS ---
DATE OF ADMISSION: 06/29/2018 DATE OF CONSULTATION: 07/02/2018 TYPE OF CONSULTATION: Infectious disease. REASON FOR CONSULTATION: Antibiotic management. HISTORY OF PRESENT ILLNESS: Mukund Rodarte is a 42-year-old male who was just discharged 2 days charity or to admission for carpal tunnel surgery, who comes in short of breath. Patient had right arm carpa l tunnel surgery. He complains of 2 days of cough with bloody sputum production with subjective feve r. He is currently not short of breath or tachycardic. His past problems; he had surgery to his [facility]. He has a history of seizure disorder, history of respiratory disorder. FAMILY HISTORY: Noncontributory. SOCIAL HISTORY: He does not smoke, drink or abuse drugs. ALLERGIES: None to penicillin, sulfa or foods. MEDICATIONS: Per chart. REVIEW OF SYSTEMS: Noncontributory. LABS: On admission, his white count was 11.6, H and H of 13.5 and 39.8, platelet count 188,000. BUN and creatinine 13/0.99, glucose of 104. HOSPITAL COURSE: The patient was seen by Dr. Crum. The patient was noted to have bilateral pneumo devi, severe in the right upper lobe, was started on IV antibiotics and nebulizing treatment. Sputum cultures were ordered. Doubt TB, he recently was intubated for surgical procedure on the and po ssible aspiration or trauma during intubation. The patient was seen by Dr. Montoya, bilateral perih ilar and upper lung zone airspace opacities concerning for DAH, though history is not consistent with this. Consider aspiration pneumonitis. Patient has a history of asthma and carpal tunnel as note d before. PHYSICAL EXAMINATION: GENERAL: He is a well-developed, well-nourished male, awake, responsive, in no acute distress. VITAL SIGNS: Stable. He is afebrile. SKIN: Without generalized rash. HEENT: Within normal limits. NECK: Supple. LYMPH NODES: None palpable. CHEST: Decreased breath sounds at the bases. HEART: Without murmur or gallop. ABDOMEN: Soft, nontender, without organosplenomegaly or masses. EXTREMITIES: Without cyanosis, clubbing, or edema. RECTAL AND GENITAL: Deferred. NEUROLOGIC: No focal neurological abnormalities. Currently, white count is 8.3. Patient was seen a lso by Dr. Vadgama. No focal deficits, feeling better. MICROBIOLOGY: Blood cultures are growing staph species which may be contaminant. Normal respiratory niko and sputum. Blood cultures otherwise are negative so that is probably a contaminant. IMPRESSION AND PLAN: The patient is on vancomycin and Unasyn. Chest x-ray shows patchy right lung i nfiltrate significantly improved from the CT scan of the thorax. He had extensive bilateral pulmonar y infiltrates, most severe in the right upper lobe compatible with pneumonia. He probably had aspira tion pneumonia. The 1 positive blood culture is probably contaminant. We will continue him on curre nt therapy. Dictated By: ELOY GONZALEZ MD, JD/NTS Conf#: [id number] DID#: [id number] CC: FERN CRUM MD;*EndCC*
[2018-07-02] MEDS: AZITHROMYCIN 500MG/NS (PMX) 250 ML IV SCH (15:57)
[2018-07-02] MEDS ORDERED: VANCOMYCIN HCL 2 GM in SOD CHLORIDE 0.9% 500 ML IVPB ONE (16:00)
[2018-07-02] MEDS: MONTELUKAST 10 MG TAB PO SCH (20:49)
[2018-07-02] MEDS: BACLOFEN 10 MG TAB PO SCH (20:50)
[2018-07-03] VITALS (11 sets, daily range): BP systolic 115–142; BP diastolic 66–101; PULSE 69–94; RESP 18–20
[2018-07-03] MEDS ORDERED: VANCOMYCIN HCL 1.5 GM in SOD CHLORIDE 0.9% 250 ML IVPB SCH ×2 (04:00→12:00)
[2018-07-03] MEDS: PANTOPRAZOLE (EC) 40 MG TAB PO SCH (06:44)
[2018-07-03] MEDS ORDERED: AZITHROMYCIN 250 MG TAB PO SCH (09:00)
[2018-07-03] MEDS: VENLAFAXINE (XR) 75 MG CAP PO SCH (09:07)
[2018-07-03] MEDS: PYRIDOXINE 50 MG TAB PO SCH (09:07)
[2018-07-03] MEDS: carBAMAZepine (XR) 200 MG TABSR PO SCH (09:07)
[2018-07-03] MEDS: CHOLECALCIFEROL 1,000 UNIT TAB PO SCH (09:07)
[2018-07-03] MEDS: FOLIC ACID 1 MG TAB PO SCH (09:07)
[2018-07-03] MEDS: AMOXICILLIN/CLAV 875 MG TAB PO SCH (09:07)
--- NOTE | 2018-07-03 11:22 | CONS ---
Consult Date/Type/Reason Admit Date/Time Jun 29, 2018 at 13:28 Initial Consult Date 06/30/18 Type of Consult Pulmonary Date/Time of Note DATE: 07/03/18 TIME: 11:21 Subjective Comfortable this morning denies respiratory distress Objective Vital Signs Date Temp Pulse Resp B/P (MAP) Pulse Ox O2 O2 Flow FiO2 Time Delivery Rate 07/03/18 75 08:48 07/03/18 98.0 20 131/77 92 07:29 (95) 07/02/18 Room Air 15:17 07/01/18 2.0 08:00 Intake and Output 07/02/18 07/02/18 07/03/18 1515:00 23:00 07:00 IntakeIntake Total 1200 ml BalanceBalance 1200 ml Exam GENERAL: VITAL SIGNS: per chart NECK: Supple. No JVD or lymphadenopathy. CARDIAC EXAM: S1, S2. No added sounds or murmurs. CHEST: clear bilaterally, No added sounds, rales or wheezes ABDOMEN: Soft, nontender. No guarding or rebound. EXTREMITIES: No cyanosis, clubbing or edema. NEUROLOGIC: Generalized weakness. No focal deficits. Results/Medications Result Diagram: 07/03/18 0535 07/03/18 0535 Results 24 hrs Laboratory Tests Test 07/03/18 05:35 White Blood Count 7.5 Red Blood Count 4.71 Hemoglobin 14.1 Hematocrit 41.5 L Mean Corpuscular Volume 88.1 Mean Corpuscular Hemoglobin 29.9 Mean Corpuscular Hemoglobin Concent 34.0 Red Cell Distribution Width 12.0 Platelet Count 243 Mean Platelet Volume 9.3 Immature Granulocytes % 0.800 H Neutrophils % 67.7 Lymphocytes % 19.4 Monocytes % 11.6 H Eosinophils % 0.0 Basophils % 0.5 Nucleated Red Blood Cells % 0.0 Immature Granulocytes # 0.060 H Neutrophils # 5.1 Lymphocytes # 1.5 Monocytes # 0.9 Eosinophils # 0.0 Basophils # 0.0 Nucleated Red Blood Cells # 0.0 Sodium Level 143 Potassium Level 4.0 Chloride Level 100 Carbon Dioxide Level 27 Anion Gap 16 H Blood Urea Nitrogen 15 Creatinine 0.90 Est Glomerular Filtrat Rate mL/min > 60 Glucose Level 78 Calcium Level 10.1 Phosphorus Level 5.1 H Magnesium Level 2.1 Medications Current Medications Baclofen (Lioresal) 5 mg QHS PO Last administered on 07/02/18 20:50; Admin Dose 5 MG; Start 06/29/18 at 21:00 Carbamazepine (Tegretol Xr) 400 mg BID PO Last administered on 07/03/18 09:07; Admin Dose 400 MG; Start 06/29/18 at 21:00 Cholecalciferol (Vitamin D) 2,000 unit DAILY PO Last administered on 07/03/18 09:07; Admin Dose 2,000 UNIT; Start 06/30/18 at 09:00 Folic Acid (Folic Acid) 1 mg DAILY PO Last administered on 07/03/18 09:07; Admin Dose 1 MG; Start 06/30/18 at 09:00 Montelukast Sodium (Singulair) 10 mg QHS PO Last administered on 07/02/18 20:49; Admin Dose 10 MG; Start 06/29/18 at 21:00 Pyridoxine HCl (Vitamin B6) 50 mg DAILY PO Last administered on 07/03/18 09:07; Admin Dose 50 MG; Start 06/30/18 at 09:00 Venlafaxine HCl (Effexor Xr) 150 mg DAILY PO Last administered on 07/03/18 09:07; Admin Dose 150 MG; Start 06/30/18 at 09:00 IV Flush (NS 3 ml) 3 ml PER PROTOCOL IV ; Start 06/29/18 at 15:00 Ondansetron HCl (Zofran Inj) 4 mg Q6H PRN IV NAUSEA/VOMITING; Start 06/29/18 at 15:00 Acetaminophen (Tylenol Tab) 650 mg Q6H PRN PO .PAIN 1-3 OR TEMP; Start 06/29/18 at 15:00 Docusate Sodium (Colace) 100 mg Q12H PRN PO .CONSTIPATION; Start 06/29/18 at 15:00 Magnesium Hydroxide (Milk Of Mag) 30 ml DAILY PRN PO .CONSTIPATION; Start 06/29/18 at 15:00 Pantoprazole (Protonix Tab) 40 mg DAILY@06 PO Last administered on 07/03/18 06:44; Admin Dose 40 MG; Start 06/30/18 at 06:00 Levalbuterol (Xopenex Neb) 0.63 mg Q4H RESP THERAPY PRN HHN shortness of breath; Start 06/29/18 at 15:00 Guaifenesin/ Codeine Phosphate (Robitussin Ac Liquid Cup) 5 ml Q4H PRN PO cough with pain Last administered on 07/01/18 21:52; Admin Dose 5 ML; Start 06/29/18 at 15:00 Guaifenesin/ Dextromethorphan (Robitussin Dm Liquid Cup) 5 ml Q4H PRN PO cough; Start 06/29/18 at 15:00 Acetaminophen/ Hydrocodone Bitart ([place] (5/325)) 1 tab Q4H PRN PO MODERATE PAIN LEVEL 4-6 Last administered on 07/01/18 02:34; Admin Dose 1 TAB; Start 06/29/18 at 15:00 Morphine Sulfate (morphine) 2 mg Q6 PRN IV SEVERE PAIN LEVEL 7-10 Last administered on 07/01/18 21:52; Admin Dose 2 MG; Start 06/29/18 at 15:00 Amoxicillin/ Clavulanate Potassium (Augmentin) 875 mg BID PO Last administered on 07/03/18 09:07; Admin Dose 875 MG; Start 07/01/18 at 15:00 Vancomycin HCl (Vanco Iv Per Pharmacy) VANCOMYCIN PER PHARMACY PER PROTOCOL XX ; Start 07/02/18 at 14:00 Azithromycin (Zithromax) 500 mg DAILY PO Last administered on 07/03/18at 09:07; Admin Dose 500 MG; Start 07/03/18 at 09:00 Vancomycin HCl 1.5 gm/Sodium Chloride 250 ml @ 83.333 mls/ hr Q12H IVPB ; Start 07/03/18 at 12:00 Assessment/Plan Hospital Course (Demo Recall) IMP: 1. B/L perihilar and upper lung zone airspace opacities---most c/w aspiration pneumonitis vs negative pressure pulmonary edema related to general anesthesia and intubation 4 days prior. RECS: 1. De-escalate abx DC planning TABITHA BROWNE MD, [facility] Jul 03, 2018 11:22
--- NOTE | 2018-07-03 15:21 | CONS ---
Assessment/Plan Assessment/Plan Hospital Course (Demo Recall) Patient is alert feels good looks comfortable no fevers overnight no shortness of breath WBC today 7.5 no shift no bands BUN 15 creatinine 0.90 microbiology blood cultures on admission grew coag negative staph 1 out of 2 bottles repeat negative sputum culture negative antimicrobials patient is on vancomycin Zithromax and Augmentin Physical examination: This is a morbidly obese well-developed middle-aged white man who is alert in no distress. Head atraumatic normocephalic sclera nonicteri c neck is supple chest rise symmetrical breath sounds diminished bases. Heart: S1-S2. Abdomen soft bowel sounds present. Extremities with right forearm Chato wrapped Assessment: 1. Bilateral pneumonia 2. History of recent carpal tunnel surgery on the right arm 3. Coag negative staph bacteremia consistent with contaminant 4. Obesity Plan: Patient remained stable okay discharge on oral Levaquin and doxycycline for 7 more days Consultation Date/Type/Reason Admit Date/Time Jun 29, 2018 at 13:28 Initial Consult Date 06/30/18 Type of Consult id Date/Time of Note DATE: 07/03/18 TIME: 15:21 Exam/Review of Systems Exam Vitals Vital Signs Date Temp Pulse Resp B/P (MAP) Pulse Ox O2 O2 Flow FiO2 Time Delivery Rate 07/03/18 94 13:08 07/03/18 98.1 20 132/73 94 11:28 (92) 07/02/18 Room Air 15:17 07/01/18 2.0 08:00 Intake and Output 07/02/18 07/02/18 07/03/18 1515:00 23:00 07:00 IntakeIntake Total 1200 ml BalanceBalance 1200 ml Results Result Diagram: 07/03/18 0535 07/03/18 0535 Results 24hrs Laboratory Tests Test 07/03/18 05:35 White Blood Count 7.5 Red Blood Count 4.71 Hemoglobin 14.1 Hematocrit 41.5 L Mean Corpuscular Volume 88.1 Mean Corpuscular Hemoglobin 29.9 Mean Corpuscular Hemoglobin Concent 34.0 Red Cell Distribution Width 12.0 Platelet Count 243 Mean Platelet Volume 9.3 Immature Granulocytes % 0.800 H Neutrophils % 67.7 Lymphocytes % 19.4 Monocytes % 11.6 H Eosinophils % 0.0 Basophils % 0.5 Nucleated Red Blood Cells % 0.0 Immature Granulocytes # 0.060 H Neutrophils # 5.1 Lymphocytes # 1.5 Monocytes # 0.9 Eosinophils # 0.0 Basophils # 0.0 Nucleated Red Blood Cells # 0.0 Sodium Level 143 Potassium Level 4.0 Chloride Level 100 Carbon Dioxide Level 27 Anion Gap 16 H Blood Urea Nitrogen 15 Creatinine 0.90 Est Glomerular Filtrat Rate mL/min > 60 Glucose Level 78 Calcium Level 10.1 Phosphorus Level 5.1 H Magnesium Level 2.1 Medications Medication Current Medications Baclofen (Lioresal) 5 mg QHS PO Last administered on 07/02/18 20:50; Admin Dose 5 MG; Start 06/29/18 at 21:00 Carbamazepine (Tegretol Xr) 400 mg BID PO Last administered on 07/03/18 09:07; Admin Dose 400 MG; Start 06/29/18 at 21:00 Cholecalciferol (Vitamin D) 2,000 unit DAILY PO Last administered on 07/03/18 09:07; Admin Dose 2,000 UNIT; Start 06/30/18 at 09:00 Folic Acid (Folic Acid) 1 mg DAILY PO Last administered on 07/03/18 09:07; Admin Dose 1 MG; Start 06/30/18 at 09:00 Montelukast Sodium (Singulair) 10 mg QHS PO Last administered on 07/02/18 20:49; Admin Dose 10 MG; Start 06/29/18 at 21:00 Pyridoxine HCl (Vitamin B6) 50 mg DAILY PO Last administered on 07/03/18 09:07; Admin Dose 50 MG; Start 06/30/18 at 09:00 Venlafaxine HCl (Effexor Xr) 150 mg DAILY PO Last administered on 07/03/18 09:07; Admin Dose 150 MG; Start 06/30/18 at 09:00 IV Flush (NS 3 ml) 3 ml PER PROTOCOL IV ; Start 06/29/18 at 15:00 Ondansetron HCl (Zofran Inj) 4 mg Q6H PRN IV NAUSEA/VOMITING; Start 06/29/18 at 15:00 Acetaminophen (Tylenol Tab) 650 mg Q6H PRN PO .PAIN 1-3 OR TEMP; Start 06/29/18 at 15:00 Docusate Sodium (Colace) 100 mg Q12H PRN PO .CONSTIPATION; Start 06/29/18 at 15:00 Magnesium Hydroxide (Milk Of Mag) 30 ml DAILY PRN PO .CONSTIPATION; Start 06/29/18 at 15:00 Pantoprazole (Protonix Tab) 40 mg DAILY@06 PO Last administered on 07/03/18at 06:44; Admin Dose 40 MG; Start 06/30/18 at 06:00 Levalbuterol (Xopenex Neb) 0.63 mg Q4H RESP THERAPY PRN HHN shortness of breath; Start 06/29/18 at 15:00 Guaifenesin/ Codeine Phosphate (Robitussin Ac Liquid Cup) 5 ml Q4H PRN PO cough with pain Last administered on 07/01/18at 21:52; Admin Dose 5 ML; Start 06/29/18 at 15:00 Guaifenesin/ Dextromethorphan (Robitussin Dm Liquid Cup) 5 ml Q4H PRN PO cough; Start 06/29/18 at 15:00 Acetaminophen/ Hydrocodone Bitart (Mcdonough (5/325)) 1 tab Q4H PRN PO MODERATE PAIN LEVEL 4-6 Last administered on 07/01/18at 02:34; Admin Dose 1 TAB; Start 06/29/18 at 15:00 Morphine Sulfate (morphine) 2 mg Q6 PRN IV SEVERE PAIN LEVEL 7-10 Last administered on 07/01/18at 21:52; Admin Dose 2 MG; Start 06/29/18 at 15:00 Vancomycin HCl (Vanco Iv Per Pharmacy) VANCOMYCIN PER PHARMACY PER PROTOCOL XX ; Start 07/02/18 at 14:00 Vancomycin HCl 1.5 gm/Sodium Chloride 250 ml @ 83.333 mls/ hr Q12H IVPB Last administered on 07/03/18at 12:56; Admin Dose 83.333 MLS/HR; Start 07/03/18 at 12:00 Miscellaneous Information (*Rx Drug Level Order Reminder*) VANCOMYCIN TROUGH AT 1100 ONCE ONCE XX ; Start 07/04/18 at 11:00; Stop 07/04/18 at 11:01 Levofloxacin (Levaquin) 500 mg DAILY PO ; Start 07/03/18 at 15:30; Status UNV Doxycycline Hyclate (Vibramycin) 100 mg BID PO ; Start 07/03/18 at 15:30; Status UNV NICHOL S[employer] Jul 03, 2018 15:21
[2018-07-03] MEDS ORDERED: LEVO500T48 PO (15:25)
[2018-07-03] MEDS ORDERED: DOXY100T21 PO (15:25)
--- NOTE | 2018-07-03 15:26 | PDOCDIS ---
Discharge Instructions CONDITION [id number] Patient Condition: [id number] Stable FOLLOW UP/APPOINTMENTS Follow-up Plan 1. Please follow-up with your primary care provider as soon as possible and let them know that you were diagnosed with aspiration pneumonitis and a likely bacterial contaminant of coag negative staph in your bloodstream. Please finish all antibiotics as directed by infectious disease physician. 2. Please continue home medications ANTONIO VELAZQUEZ Jul 03, 2018 15:26
[2018-07-03] MEDS ORDERED: LEVOFLOXACIN 500 MG TAB PO SCH (15:30)
[2018-07-03] MEDS ORDERED: DOXYCYCLINE 100 MG TAB PO SCH (15:30)
--- NOTE | 2018-07-03 15:34 | DS ---
Date/Time of Note Date/Time of Note DATE: 07/03/18 TIME: 15:34 Discharge Summary Admission/Discharge Info Admit Date/Time Jun 29, 2018 at 13:28 Discharge Date/Time Patient Condition: Stable Hospital Course Patient is a male with a past medical history significant for asthma, mood disorder, recent carpal tunnel surgery who presented with respiratory problems and was diagnosed with pneumonia likely aspiration pneumonitis due to recent intubation. Patient was seen by pulmonology and subsequently did very well with symptoms while on antibiotics. Patient also had a positive blood culture however this was likely a contaminant however will be treated nonetheless. Patient was seen by infectious disease who suggested outpatient regimen of Levaquin and doxycycline for an additional 7 days. Patient is doing very well and will follow up with primary care provider as soon as possible Pneumonia, questionable aspiration pneumonitis versus pneumonia Positive blood culture, questionable contaminant Asthma, chronic We disorder, chronic Recent carpal tunnel surgery, chronic, will follow up with his hand surgeon tomorrow for dressing removal History of seizure disorder, stable, no issues, chronic Home Meds Active Scripts Levofloxacin* (Levaquin*) 500 Mg Tablet, 500 MG PO DAILY, #6 TAB Prov:ANTONIO VELAZQUEZ 07/03/18 Doxycycline Monohydrate* (Doxycycline Monohydrate*) 100 Mg Tablet, 100 MG PO BID, #13 TAB Prov:ANTONIO VELAZQUEZ 07/03/18 Reported Medications Pyridoxine Hcl (Vitamin B6) 50 Mg Tab, 50 MG PO DAILY, TAB 06/29/18 Sulindac* (Clinoril*) 150 Mg Tab, 37.5 MG PO BID, TAB 06/29/18 Cholecalciferol* (Vitamin D3*) 1,000 Unit Tablet, 2000 UNIT PO DAILY, TAB 06/29/18 Folic Acid* (Folic Acid*) 1 Mg Tablet, 1 MG PO DAILY, TAB 06/29/18 Baclofen* (Baclofen*) 10 Mg Tablet, 5 MG PO QHS, TAB 06/29/18 Montelukast Sodium* (Singulair*) 10 Mg Tablet, 10 MG PO QHS 07/11/11 Simvastatin (Simvastatin) 40 Mg Tablet, 40 MG PO 07/11/11 Sulfamethoxazole-Trimethoprim* (Bactrim* DS) 1 Tab Tab, 1 TAB PO BID 07/11/11 Carbamazepine* (Tegretol Xr*) 400 Mg Tab.sr.12h, 400 MG PO BID 07/11/11 Venlafaxine Hcl* (Effexor XR*) 150 Mg Cap.sr.24h, 150 MG PO DAILY 07/11/11 Discontinued Reported Medications [No New Meds] No Conflict Check 08/05/11 Doxycycline Hyclate (Doxycycline Hyclate) 100 Mg Capsule, 100 MG PO BID 07/11/11 Pseudoephedrine Hcl (Sudogest) 30 Mg Tablet, 30 MG PO BID 07/11/11 Discontinued Scripts Cyclobenzaprine Hcl* (Cyclobenzaprine Hcl*) 10 Mg Tablet, 10 MG PO QHS, #7 TAB Prov:MICHELLE FLOR PA-C 09/10/16 Naproxen* (Naprosyn*) 500 Mg Tablet, 500 MG PO BID PRN for PAIN AND/OR INFLAMMATION, #30 TAB Prov:MICHELLE FLORC 09/10/16 Tramadol HCl (Tramadol HCl) 50 Mg Tablet, 50 MG PO Q4 PRN for PAIN, #20 TAB Prov:MICHELLE FLOR PA-C 09/10/16 Guaifenesin-Dextromethorphan* (Robitussin* DM) 100MG/10MG/5ML Syrup, 10 ML PO Q4H PRN for COUGH for 5 Days, ML Prov:MICHELLE FLOR PA-C 09/10/16 Ondansetron (Ondansetron Odt) 4 Mg Tab.rapdis, 4 MG PO Q6H PRN for NAUSEA AND/OR VOMITING, #15 TAB Prov:DEEPA PEREZ PA-C 05/14/16 Follow-up Plan 1. Please follow-up with your primary care provider as soon as possible and let them know that you were diagnosed with aspiration pneumonitis and a likely bacterial contaminant of coag negative staph in your bloodstream. Please finish all antibiotics as directed by infectious disease physician. 2. Please continue home medications Primary Care Provider Osvaldo Traore DO Time spent on discharge: > 30 minutes Pending Labs Laboratory Tests Test 07/03/18 05:35 White Blood Count 7.5 10^3/ul (4.8-10.8) Red Blood Count 4.71 10^6/ul (4.70-6.10) Hemoglobin 14.1 g/dl (14.0-18.0) Hematocrit 41.5 % (42.0-52.0) Mean Corpuscular Volume 88.1 fl (82.0-101.0) Mean Corpuscular Hemoglobin 29.9 pg (29.0-33.0) Mean Corpuscular Hemoglobin Concent 34.0 g/dl (32.0-37.0) Red Cell Distribution Width 12.0 % (11.5-14.5) Platelet Count 243 10^3/UL (140-415) Mean Platelet Volume 9.3 fl (7.4-10.4) Immature Granulocytes % 0.800 % (0.001-0.429) Neutrophils % 67.7 % (39.0-77.0) Lymphocytes % 19.4 % (15.0-51.0) Monocytes % 11.6 % (0.0-11.0) Eosinophils % 0.0 % (0.0-7.0) Basophils % 0.5 % (0.0-2.0) Nucleated Red Blood Cells % 0.0 /100WBC (0.0-0.0) Immature Granulocytes # 0.060 10^3/ul (0.0-0.031) Neutrophils # 5.1 10^3/ul (1.6-7.5) Lymphocytes # 1.5 10^3/ul (0.8-2.9) Monocytes # 0.9 10^3/ul (0.3-0.9) Eosinophils # 0.0 10^3/ul (0.0-0.5) Basophils # 0.0 10^3/ul (0.0-0.1) Nucleated Red Blood Cells # 0.0 10^3/ul (0.0-0.0) Sodium Level 143 mmol/L (135-144) Potassium Level 4.0 mmol/L (3.5-5.1) Chloride Level 100 mmol/L (97-110) Carbon Dioxide Level 27 mmol/L (21-31) Anion Gap 16 (5-13) Blood Urea Nitrogen 15 mg/dl (7-20) Creatinine 0.90 mg/dl (0.61-1.24) Est Glomerular Filtrat Rate mL/min > 60 mL/min (>60) Glucose Level 78 mg/dl (70-220) Calcium Level 10.1 mg/dl (8.4-10.2) Phosphorus Level 5.1 mg/dl (2.5-4.9) Magnesium Level 2.1 mg/dl (1.7-2.5) ANTONIO VELAZQUEZ Jul 03, 2018 15:34
== END 2018-07-03 17:45 | disposition home or self-care (01) | DRG 206 ==
LOC: E/R 10:39 → 6WM 13:28 → CANRESERV 20:09 → 6WM 22:04
PROVIDERS: ADMIT Internal Medicine; ATTEND Internal Medicine
DX: J95.4 Chemical pneumonitis due to anesthesia (principal); Z98.890 Other specified postprocedural states; J45.909 Unspecified asthma, uncomplicated; F39 Unspecified mood [affective] disorder; K21.9 Gastro-esophageal reflux disease without esophagitis; G40.909 Epilepsy, unspecified, not intractable, without status epilepticus; E66.9 Obesity, unspecified; Z68.39 Body mass index [BMI] 39.0-39.9, adult; T41.0X5A Adverse effect of inhaled anesthetics, initial encounter; Y83.8 Other surgical procedures as the cause of abnormal reaction of the patient, or of later complication, without mention of misadventure at the time of the procedure
CPT/HCPCS: 36415; 71045; 71275; 80048; 80053; 81003; 83605; 83735; 83880; 84100; 84484; 85025; 85610; 85730; 86021; 86038; 87040; 87070; 96374; 96375; J0456; J0692; J0696; J2270; J3370; J7030; J7040; J7050; Q9967